=== PATIENT | male | born 2000 ===

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

== ENCOUNTER 2021-07-08 16:46 | Emergency (ER) | payer OTHER, MEDICAID, SELFPAY ==
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
[2021-07-08 16:56] VITALS: BP 122/53; BP 140/80; PULSE 75; PULSE 91; RESP 16; TEMP 37.1; O2SAT 97; O2SAT 99; BMI 22.1
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
[2021-07-08 17:34] LABS: MANUAL DIFF FLAG NO
[2021-07-08 17:35] LABS: Basophils Percent Auto 0.6 % (0-2); Eosinophils Absolute Auto 0.4 X10*3/uL (0.0-0.4); Eosinophils Percent Auto 7.2 % (0-4); Hematocrit 40.1 % (42-52); Hemoglobin 13.7 g/dl (14.0-18.0); Imm Gran Abs Auto 0.01 X10*3/uL (0.00-0.03); Imm Gran Pct Auto 0.2 % (0.0-0.4); Lymphocytes Absolute Auto 1.5 X10*3/uL (1.2-4.9); Lymphocytes Percent Auto 28.8 % (20-40); Mean Corpuscular HGB Conc 34.2 g/dl (31.0-36.0); Mean Corpuscular Hemoglobin 29.5 pg (27.0-33.0); Mean Corpuscular Volume 86.2 fL (80-98); Mean Platelet Volume 10.3 fL (9.4-12.4); Monocytes Absolute Auto 0.3 X10*3/uL (0.1-1.2); Monocytes Percent Auto 6.4 % (2-11); Neutrophils Absolute Auto 2.9 X10*3/uL (2.0-8.3); Neutrophils Percent Auto 56.8 % (45-73); Platelet Count 178 X10*3/uL (160-400); Red Blood Count 4.65 X10*6/uL (4.60-5.80); Red Cell Distribution Width 12.1 % (11.0-16.0); White Blood Count 5.2 X10*3/uL (4.8-10.8)
[2021-07-08] MEDS: iohexoL 350 MG/ML 100 ML INFUS..BTL IV (17:50)
[2021-07-08 18:08] LABS: Alanine Aminotransferase 22 U/L (0-40); Albumin Level 4.4 g/dL (3.5-5.0); Alkaline Phosphatase 85 U/L (39-117); Anion Gap 13 (12-20); Aspartate Amino Transferase 22 U/L (5-37); Bilirubin Direct 0.2 mg/dL (0.0-0.5); Bilirubin Total 0.7 mg/dL (0.0-1.0); Blood Urea Nitrogen 15 mg/dL (9-16); Calcium 9.2 mg/dL (8.4-10.2); Carbon Dioxide 24 mmol/L (22-29); Chloride 110 mmol/L (96-108); Creatinine Clr Calc Pharmacy 116.6; Estimated Glomerular Filt Rate > 60; Glucose Random 109 mg/dL (60-115); Lipase 18 U/L (8-78); Magnesium 2.3 mg/dL (1.6-2.6); Potassium 4.3 mmol/L (3.3-5.1); Sodium 143 mmol/L (135-145); Total Protein 6.6 g/dL (6.5-8.0)
[2021-07-08 18:09] VITALS: BP 105/63; PULSE 61; RESP 12; TEMP 37; O2SAT 98
[2021-07-08] MEDS: 0.9 % Sodium Chloride 1,000 ML 999 ML IVCONT (18:13)
[2021-07-08] MEDS: Lidocaine HCl 1 % MPF 5 ML VIAL SUBCUT (18:13)
--- NOTE | 2021-07-08 19:02 | PC.NURSE ---
Assumed care of client at this time. Client pending results from imaging. Pending these client will recieve stitches to lower lip by physician. Client in nad maldonado x 3.
--- NOTE | 2021-07-08 19:30 | PC.NURSE ---
Monique NOEL at bedside inserting stitches into lower lip. Plan for repeat CBC then d.c if normal
--- NOTE | 2021-07-08 19:51 | PC.NURSE ---
stitches inserted. Repeat CBC in progress
[2021-07-08 19:57] LABS: MANUAL DIFF FLAG NO
[2021-07-08 19:58] LABS: Basophils Percent Auto 0.4 % (0-2); Eosinophils Absolute Auto 0.3 X10*3/uL (0.0-0.4); Eosinophils Percent Auto 4.9 % (0-4); Hematocrit 41.8 % (42-52); Hemoglobin 14.1 g/dl (14.0-18.0); Imm Gran Abs Auto 0.01 X10*3/uL (0.00-0.03); Imm Gran Pct Auto 0.1 % (0.0-0.4); Lymphocytes Absolute Auto 1.8 X10*3/uL (1.2-4.9); Lymphocytes Percent Auto 25.7 % (20-40); Mean Corpuscular HGB Conc 33.7 g/dl (31.0-36.0); Mean Corpuscular Hemoglobin 29.7 pg (27.0-33.0); Mean Platelet Volume 10.6 fL (9.4-12.4); Monocytes Absolute Auto 0.3 X10*3/uL (0.1-1.2); Monocytes Percent Auto 4.8 % (2-11); Neutrophils Absolute Auto 4.4 X10*3/uL (2.0-8.3); Neutrophils Percent Auto 64.1 % (45-73); Platelet Count 174 X10*3/uL (160-400); Red Blood Count 4.75 X10*6/uL (4.60-5.80); Red Cell Distribution Width 12.2 % (11.0-16.0); White Blood Count 6.9 X10*3/uL (4.8-10.8)
== END 2021-07-08 20:19 | disposition home or self-care (01) ==
PROVIDERS: Physician Assistant; Emergency Provider Emergency Medicine; PCP Pediatrics
DX: M25.521 Pain in right elbow (principal); S01.511A Laceration without foreign body of lip, initial encounter; V47.0XXA Car driver injured in collision with fixed or stationary object in nontraffic accident, initial encounter; R51.9 Headache, unspecified; Y93.89 Activity, other specified; Y92.414 Local residential or business street as the place of occurrence of the external cause; Y99.9 Unspecified external cause status
CPT/HCPCS: 12051; 36415; 70450; 71260; 72125; 73080; 74177; 80048; 80076; 83690; 83735; 85025; 96360; 99284; Q9967

== ENCOUNTER 2021-09-07 11:10 | Emergency (ER) | payer MEDICAID, SELFPAY ==
[2021-09-07 11:27] VITALS: BP 122/74; PULSE 73; RESP 18; TEMP 36.7; O2SAT 100; BMI 21.4
== END 2021-09-07 13:03 | disposition left against medical advice (07) ==
PROVIDERS: Emergency Provider Emergency Medicine; PCP Pediatrics
DX: F11.93 Opioid use, unspecified with withdrawal (principal)
CPT/HCPCS: 99281; 99282

== ENCOUNTER 2021-09-12 21:18 | Emergency (ER) | payer MEDICAID, SELFPAY ==
--- NOTE | ~2021-09-12 | XR_ITS ---
EXAMINATION: XR CHEST CLINICAL INFORMATION: Lung pain after smoking cigarettes COMPARISON: 07/08/2021 TECHNIQUE: 2 views of the chest were obtained. FINDINGS: The lungs are clear with no focal consolidation. No evidence of pneumothorax, pulmonary edema, or pleural effusions. The cardiomediastinal silhouette is unremarkable. No acute osseous findings. XR/XR chest 2V IMPRESSION: No acute cardiopulmonary findings.
[2021-09-12 21:57] VITALS: BP 116/51; PULSE 73; RESP 18; TEMP 36.6; O2SAT 96; BMI 21.4
[2021-09-12 22:44] VITALS: BP 100/52; PULSE 66; RESP 16; O2SAT 97
--- NOTE | 2021-09-12 23:14 | ED_ITS ---
HPI - General Adult General Chief complaint: General Medical Stated complaint: back pain Time Seen by Provider: 09/12/21 22:58 Source: patient Mode of arrival: ambulatory History of Present Illness HPI narrative: 21-year-old male with past medical history of asthma presenting to the ED complaining of lung pain after smoking a cigarette today. Denies pain at present. Denies SOB, CP, cough, fever, chills, LE edema, calf pain, history blood clots, exogenous hormone use. Is a daily cigarette smoker Onset (ago): hour(s) Related Data Previous Rx's Medication Instructions Recorded salicylic acid 17 % topical gel 1 applic TOPICAL BID #7 g 09/21/20 (Compound W) cephalexin 500 mg capsule 500 mg PO QID 7 Days #28 cap 07/08/21 Allergies Allergy/AdvReac Type Severity Reaction Status Date / Time No Known Allergies Allergy Unverified 07/30/20 16:56 [No Known Allergies*] Review of Systems Review of Systems: Constitutional: No Fever, No Chills, No Fatigue, No Malaise ENT/Mouth: No Ear Pain, No Nasal Congestion, No sore throat, No Rhinorrhea, No Swallowing Difficulty Eyes: No Eye Pain, No Swelling Cardiovascular: No Chest Pain, No SOB, No Edema, No Palpitations Respiratory: No Cough, No Sputum, No Wheezing, No Smoke Exposure, No Dyspnea Gastrointestinal: No Nausea, No Vomiting, No Abdominal pain Genitourinary: No Dysuria, No Urinary Frequency, No Hematuria,No Flank Pain Musculoskeletal: +posterior back pain, No Myalgias, No Joint Swelling Skin: No Skin Lesions, No rash Neuro: No Weakness, No Numbness, No Headache Yes all other systems are reviewed and are negative [facility] Past Medical History Medical History (Updated 09/12/21 @ 23:52 by BERT Sutton) Asthma No known health problems Social History Social History Alcohol intake: never Patient Tobacco Use Status: Never used Tobacco Advance Directives: No Advance Directives Information Provided: No Physical Exam Vital Signs: Vital Signs: Last Vital Signs Temp 97.9 F 09/12/21 21:57 Pulse 66 09/12/21 22:44 Resp 16 09/12/21 22:44 BP 100/52 L 09/12/21 22:44 Pulse Ox 97 09/12/21 22:44 Body Mass Index 21.4 Const: General: cooperative, healthy appearing and no acute distress Orientation/consciousness: patient oriented x3 Limitations: no limitations HENMT: Head: Yes normal to inspection Ears: hearing grossly normal bilaterally General nose exam: Normal external nose present Face and sinus: Yes normal facial exam Eyes: General: appearance normal, both eyes and all related structures EOM: EOMs intact bilaterally Neck: Neck: Yes normal visual inspection and Yes no meningeal signs Resp: Effort & Inspection: normal respiratory effort, no cough and no respirat ory distress Auscultation: clear to auscultation bilaterally, no crackles, no rales, no rhonchi and no wheezes Cardio: Rate: regular rate Heart sounds: S1 normal heart sound present and S2 normal heart sound present Skin: Rashes: no rashes Wounds: no wounds Neuro: General: patient oriented x3 and no meningeal signs Gait exam (Neuro): Normal gait present Extrem: General: Yes normal to inspection, Yes no pedal edema and Yes no calf tenderness Course Course Course Narrative: XR chest 2V IMPRESSION: No acute cardiopulmonary findings. Medical Decision Making [facility] Narrative Medical decision making narrative: 21-year-old male with past medical history of asthma presenting to the ED complaining of lung pain after smoking a cigarette today. On exam vital signs stable, NAD, nontoxic appearing, asymptomatic at present, lungs CTA, no pedal edema/calf tenderness. Perc rule negative. Will obtain CXR to rule out pneumonia/underlying pathology. Low concern for ACS/PE Discharge Plan Discharge Clinical Impression: Back pain Qualifiers: Back pain location: back pain in unspecified location Chronicity: acute Back pain laterality: unspecified Qualified Code(s): M54.9 - Dorsalgia, unspecified Patient Disposition: Home, Self-Care Instructions: Back Pain (ED) Additional Instructions: Your chest x-ray was unremarkable You should really quit/cut back on smoking this causes multiple medical problems including increasing her risk of heart attacks, stroke, and If her symptoms recur, persist, developed chest pain, shortness of breath, fever, urinary incontinence/retention, numbness, tingling or weakness please return to ED Prescriptions: No Action cephalexin 500 mg capsule 500 mg PO QID 7 Days Qty: 28 RF: 0 Compound W 17 % gel 1 applic topical BID Qty: 7 RF: 0 Referrals: Ankit Lucas MD [Primary Care Provider] - 2 days
== END 2021-09-13 00:24 | disposition home or self-care (01) ==
PROVIDERS: Emergency Provider Student in an Organized Health Care Education/Training Program; PCP Pediatrics
DX: M54.9 Dorsalgia, unspecified (principal); F17.200 Nicotine dependence, unspecified, uncomplicated; J45.909 Unspecified asthma, uncomplicated
CPT/HCPCS: 71046; 99283

== ENCOUNTER 2024-12-25 22:39 | Inpatient (IN) | payer OTHER, SELFPAY ==
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
--- NOTE | ~2024-12-25 | XR_ITS ---
CLINICAL HISTORY: puched wall, hand swollen and painful 3 views right hand. Single scaphoid view of the wrist Comparison: None Findings: Equivocal small avulsion fracture base 5th metacarpal bone.Overlying soft tissue swelling No periostitis or bony destruction. Joint intervals are preserved. No marginal erosions or overhanging osteophytes. Ulnar styloid perserved. Soft tissue swelling along the 5th metacarpal bone. Carpal bones unremarkable.. No radiopaque foreign body. Impression: 1. Equivocal small avulsion fracture base 5th metacarpal bone overlying soft tissue swelling. This document has been electronically signed by: Nilo Mendoza MD on 12/29/2024 12:35:37
[2024-12-25 22:50] VITALS: BP 142/92; BP 98/76; PULSE 68; PULSE 79; RESP 16; TEMP 37; O2SAT 97; O2SAT 98; BMI 22.5
[2024-12-25 23:06] VITALS: RESP 14
--- NOTE | 2024-12-25 23:07 | PC.NURSE ---
Pt reports feeling depressed and sad due to multiple family members passing recently. He also reports that he feels like he is two people, himself and his brother. Patient is calm and cooperative, alert and oriented x4, denies SI/HI. Patient is aware of plan of care for CARE team eval after med clearance
[2024-12-25 23:32] LABS: MANUAL DIFF FLAG NO
[2024-12-25 23:33] LABS: Basophils Percent Auto 0.4 % (0-2); Eosinophils Percent Auto 0.3 % (0-4); Hematocrit 44.7 % (42.0-52.0); Imm Gran Abs Auto 0.02 X10*3/uL (0.00-0.03); Imm Gran Pct Auto 0.3 % (0.0-0.4); Lymphocytes Absolute Auto 1.6 X10*3/uL (1.2-4.9); Lymphocytes Percent Auto 23.6 % (20-40); Mean Corpuscular HGB Conc 35.8 g/dl (31.0-36.0); Mean Corpuscular Hemoglobin 30.8 pg (27.0-33.0); Mean Corpuscular Volume 86.1 fL (80.0-98.0); Mean Platelet Volume 10.5 fL (9.4-12.4); Monocytes Absolute Auto 0.4 X10*3/uL (0.1-1.2); Monocytes Percent Auto 5.8 % (2-11); Neutrophils Absolute Auto 4.8 x10*3/uL (2.0-8.3); Neutrophils Percent Auto 69.6 % (45-73); Platelet Count 207 X10*3/uL (160-400); Red Blood Count 5.19 X10*6/uL (4.60-5.80); Red Cell Distribution Width 12.1 % (11.0-16.0)
[2024-12-25 23:36] LABS: Appearance Urine Clear; Color Urine Yellow; Glucose Urine UA Negative (Negative); Leukocyte Esterase Urine Trace (Negative); Nitrite Urine Negative (Negative); PH 6.5 (5.0-9.0); Specific Gravity - Urine 1.025 (1.005-1.025); UMIC TRIGGER UACC YES; Urine Blood Trace (Negative); Urine Ketones 15 mg/dL (Negative); Urine Protein Negative (Neg-Trace)
[2024-12-25 23:49] LABS: Amphetamine Screen Urine Not Detected (Not Detect); Barbiturates, Urine Not Detected (Not Detect); Benzodiazepines Screen Urine Not Detected (Not Detect); Buprenorphine Scr Not Detected (Not Detect); Cannabinoid Screen Urine POSITIVE (Not Detect); Cocaine Screen Urine Not Detected (Not Detect); Fentanyl, urine Not Detected (Not Detect); Methadone Screen, Urine Not Detected (Not Detect); Opiate Screen Urine Not Detected (Not Detect); Oxycodone Screen Urine Not Detected (Not Detect); Phencyclidine Screen Urine Not Detected (Not Detect)
[2024-12-25 23:57] LABS: Alanine Aminotransferase 20 U/L (0-40); Albumin Level 4.7 g/dL (3.5-5.0); Alkaline Phosphatase 61 U/L (39-117); Anion Gap 14 (12-20); Aspartate Amino Transferase 26 U/L (5-37); Bilirubin Total 0.7 mg/dL (0.0-1.0); Blood Urea Nitrogen 20 mg/dL (9-16); Calcium 9.2 mg/dL (8.4-10.2); Carbon Dioxide 24 mmol/L (22-29); Chloride 108 mmol/L (96-108); Ethanol < 10 mg/dL; Glucose Random 92 mg/dL (60-115); Potassium 3.8 mmol/L (3.3-5.1); Sodium 142 mmol/L (135-145); Total Protein 7.7 g/dL (6.5-8.0)
[2024-12-26 00:11] LABS: Bacteria Urine None Seen (None Seen); Hyaline Casts Urine 0-2 /LPF (0-2); Squamous Epithelial Cell Urine 0-2 /HPF (0-2); UACC Culture Trigger YES
[2024-12-26 00:23] LABS: Creatinine Clr Calc Pharmacy 104.8; Estimated Glomerular Filt Rate > 60
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
--- NOTE | 2024-12-26 03:34 | PC.NURSE ---
Pt calm and cooperative without distress noted. Pt inquiring about plan of care and how long he would be in the department for. RN explained typical procedures and plan of care for medical clearance and Care Team evaluation, which he verbalized understanding. he offers no complaints or needs at this time, denies food/beverage/warm blankets. Per MD request, RN called the patient's mother Shelbie with help from director of medical staff services. Mom confirms that the patient is living with her temporarily s/p a recent break up. Mom states that she has a lot of concerns regarding the patient, specifically the comments he makes, shows he watches and is interested in and a previous SI attempt back when he was 19 (no further details provided regarding this event). MD aware and plan is for patient to see care team in the AM for appropriate dispo
[2024-12-26 06:17] VITALS: BP 113/56; PULSE 62; RESP 17; TEMP 36.6; O2SAT 100
--- NOTE | 2024-12-26 08:11 | PC.NURSE ---
Patient reports takes no home medications
--- NOTE | 2024-12-26 10:26 | PC.NURSE ---
Patient talking on phone with girlfriend and little brother patient agitated, making threats about what I will do when he gets out of here. Care team aware and into patients room to assess him. Patient aware that he will not be going home at this time. Continues with pressured speech, pacing in common area making statements I was dreaming for a year, today I finally woke up . Able to be re-directed for short periods of time
--- NOTE | 2024-12-26 10:42 | PC.NURSE ---
Anxious and pacing in common area, patient agreeable to take po meds to help him calm down. Provider came to speak with patient
[2024-12-26] MEDS: diphenhydrAMINE HCL 25 MG CAPSULE 50 MG PO (10:46)
[2024-12-26] MEDS: HaloperidoL 5 MG TABLET 10 MG PO (10:46)
[2024-12-26] MEDS: LORazepam 1 MG TABLET 2 MG PO (10:46)
--- NOTE | 2024-12-26 14:43 | PHA.MEDREC ---
Addendum entered by Carolina Fernández RPh 12/26/24 15:50: med rec reviewed by neymar Original Note: Pharmacy Consult ? Medication Reconciliation Pharmacy reviewed med rec done by nursing. No Known Home Meds confirmed; claims match.
[2024-12-26 15:45] VITALS: BP 126/72; PULSE 67; TEMP 36.4; O2SAT 97; BMI 21.0
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
[2024-12-27 08:00] VITALS: BP 131/70; PULSE 90; RESP 16; TEMP 36.1; O2SAT 99
[2024-12-27] MEDS: hydrOXYzine HCL 25 MG TABLET PO ×3 (09:43→19:54)
[2024-12-27 10:04] LABS: Estimated Average Glucose 97 mg/dL; Hemoglobin A1C 128.6712 umol/L; Total Hemoglobin (HGBA1C) 4190.1262 umol/L
[2024-12-27 10:21] LABS: Cholesterol 161 mg/dL (<200); HDL Cholesterol 49 mg/dL (>40); LDL Cholesterol Calculated 99 mg/dL (<100); Magnesium 2.3 mg/dL (1.6-2.6); Triglycerides 68 mg/dL (<150)
--- NOTE | 2024-12-27 10:35 | P.HPPS_ITS ---
HPI Date of Service: 12/27/24 Chief Complaint: bipolar disorder Sources of Information: patient interviewed, chart reviewed and crisis/core team assessment reviewed HPI Subjective Notes: [place] Warning and Section 12B Healthcare Proxy: No Guardianship: No Medical Problems Affecting Mental Status: No Narrative: Seen and dismissed by pt twice. Demanding discharge. 24 yo male, to ER with EMS-mother called, pt has stopped using substances and she reported his mood has become more labile with psychosis, referencing a friend who , feeling this friend is in inside of him, hanging on him and attached to him. Family tells crisis he is presenting with neil and disorganization. Pt seen 12/26x1 and 12/27 x 2. He is angry, labile, with confusion disorientation, demanding discharge. Section XIIB explained and treatment goals outlined along with review of family's presenting concerns for pt which he does not accept. Discussed working with Section XIIB evaluation time to see if we may come up with a plan of care he will agree with. Past Psychiatric History: IP: Age 20-[place] post overdose OP: None, of [facility] Medical Evaluation Reviewed: Yes [facility] Medical History (Updated 12/27/24 @ 14:33 by Myrna Paz, MONIK) Cannabis use disorder Asthma No known health problems Social History: Lives with his mother Three children Left school in tenth grade Trained in [employer] Substance History: opiates, heroin, fentanyl,percocet,cannabis Reports his sober date to crisis as 12/23/23. Trauma History: Affirms Diagnostics Vital Signs (24Hr): Vital Signs - 24 hr 12/26/24 15:45 12/27/24 08:00 Temperature 97.5 F 96.9 F Pulse Rate 67 90 Respiratory Rate 16 Blood Pressure 126/72 131/70 Pulse Oximetry 97 99 Oxygen Delivery Method Room Air BMI result Body Mass Index 21.0 Labs 12/25/24 23:25 12/25/24 23:25 Labs: Laboratory Results - last 48 hr 12/25/24 12/25/24 12/27/24 23:25 23:26 09:15 WBC 7.0 RBC 5.19 Hgb 16.0 Hct 44.7 MCV 86.1 MCH 30.8 MCHC 35.8 RDW 12.1 Plt Count 207 MPV 10.5 Immature Gran % (Auto) 0.3 Neut % (Auto) 69.6 Lymph % (Auto) 23.6 [place] % (Auto) 5.8 Eos % (Auto) 0.3 Baso % (Auto) 0.4 Lymph # (Auto) 1.6 [place] # (Auto) 0.4 Eos # (Auto) 0.0 Baso # (Auto) 0.0 Abs Immat Gran (auto) 0.02 Absolute Neuts (auto) 4.8 Absolute Nucleated RBC 0.000 Nucleated RBC % (auto) 0.0 Sodium 142 Potassium 3.8 Chloride 108 Carbon Dioxide 24 Anion Gap 14 BUN 20 H Creatinine 1.04 Estim Creat Clear Calc 104.8 Estimated GFR > 60 Random Glucose 92 Estimat Average Glucose 97 Hemoglobin A1c % 5.0 Calcium 9.2 Magnesium 2.3 Total Bilirubin 0.7 AST 26 ALT 20 Alkaline Phosphatase 61 Total Protein 7.7 Albumin 4.7 Triglycerides 68 Cholesterol 161 LDL Cholesterol, Calc 99 HDL Cholesterol 49 Urine Color Yellow Urine Appearance Clear Urine pH 6.5 Ur Specific [place] 1.025 Urine Protein Negative Urine Glucose (UA) Negative Urine Ketones 15 Urine Blood Trace H Urine Nitrite Negative Ur Leukocyte Esterase Trace H Urine RBC 11-20 H Urine WBC 6-10 H Ur Squamous Epith Cells 0-2 Urine Bacteria None Seen Hyaline Casts 0-2 Urine Opiates Screen Not Detected Ur Buprenorphine Scrn Not Detected Ur Oxycodone Screen Not Detected Urine Methadone Screen Not Detected Urine Fentanyl Screen Not Detected Ur Barbiturates Screen Not Detected Ur Phencyclidine Scrn Not Detected Ur Amphetamines Screen Not Detected U Benzodiazepines Scrn Not Detected Urine Cocaine Screen Not Detected U Marijuana (THC) Screen POSITIVE H Ethyl Alcohol < 10 Meds/Allergies Meds Home Medications ?Medication ?Instructions ?Recorded ?Confirmed ?Type No Known Home Meds 12/26/24 12/26/24 History Allergies Allergies Allergy/AdvReac Type Severity Reaction Status Date / Time No Known Allergies Allergy Verified 12/25/24 23:05 [No Known Allergies*] Mental Status Exam Mental Status Exam Patient Appearance: Appropriate Patient Orientation: Person, Place and Situation Level of Consciousness: Alert Patient Behavior: Talkative, Suspicious, Verbal Threats, Anxious, Fearful, Resistive to Care, Distractible and Impulsive Mood Description: Labile and Angry Affect Description: Labile and Angry Patient Cognition Impaired: No Ability to Follow Directions: Fair Speech Pattern: Spontaneous Speech Memory Description: Episodic Impaired Hallucinations: Auditory (?) Delusions: Paranoid Ideation and Present Thought Process: Illogical and Distracted Thought Content: positive for Circumstantial Depressive Symptoms: Increased Irritability and Difficulty Concentrating Abnormal Motor Activity Signs and Symptoms: Restlessness Judgement: Poor Assessment & Plan Assessment & Plan (1) Bipolar disorder: Status: Acute Code(s): F31.9 - Bipolar disorder, unspecified (2) Cannabis use disorder: Status: Acute Code(s): F12.90 - Cannabis use, unspecified, uncomplicated Plan Bipolar Disorder, Cannabis Use Disorder. Plan: Admit, Section XII, 15 minute checks Diagnostics as needed Collateral contact Olanzapine 20 mg HS Haldol 5 mg tid prn psychosis, agitation Education as pt will allow on mood sx and treatment Encourage milieu as pt improves. Patient educated on: therapeutic strategies Reason for continued inpatient stay Substantial Risk for: rapid decompensation Statement Statement: I have reviewed the history and physical and performed a pertinent examination on my patient. No changes have occurred unless specified. If the History and Physical was not performed prior to admission, the Hospitalist's service will be consulted for completing the admission physical. Time Spent With Patient Time: Total time managing care of this patient today ____ minutes.
[2024-12-27 10:37] LABS: Free T4 (Free Thyroxine) 1.03 ng/dL (0.71-1.85); Thyroid Stimulating Hormone 3.91 uIU/mL (0.32-4.0)
[2024-12-27 10:52] LABS: Folate 10.5 ng/mL (> or = 4.0); Vitamin B12 479 pg/mL (200-900)
[2024-12-27] MEDS: Flu Vacc TS2024-25(6mos up)/PF 0.5 ML SYRINGE IM (12:40)
[2024-12-27] MEDS: HaloperidoL 5 MG TABLET PO ×3 (12:43→19:54)
[2024-12-27] MEDS: OLANZapine 10 MG TABLET 20 MG PO (19:54)
[2024-12-27] MEDS: cephALEXin 500 MG CAPSULE PO (19:54)
[2024-12-27 20:00] VITALS: BP 129/67; PULSE 70; RESP 16; TEMP 36.5; O2SAT 97
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
[2024-12-28 07:51] VITALS: BP 130/60; PULSE 73; RESP 16; TEMP 36.8; O2SAT 100
[2024-12-28] MEDS: hydrOXYzine HCL 25 MG TABLET PO ×2 (07:56→14:51)
[2024-12-28] MEDS: cephALEXin 500 MG CAPSULE PO ×2 (08:57→21:37)
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
[2024-12-28] MEDS: HaloperidoL 5 MG TABLET PO (12:35)
[2024-12-28] MEDS: Benztropine Mesylate 1 MG TABLET PO (16:50)
[2024-12-28] MEDS: chlorproMAZINE HCl 100 MG TABLET PO (16:50)
[2024-12-28] MEDS: LORazepam 1 MG TABLET PO (17:17)
--- NOTE | 2024-12-28 17:17 | HO.BHRESTREX ---
Behavioral Restraint Exam Behavioral Health Restraint Exam Type of Restraint: Physical Hold Reason for Restraint: Substantial Risk and Substantial Risk of Harm to Others Medical Concerns for Restraint: No medical concerns, pt w/o acute inj / no noted resp/VS abnormalities Behavioral Assessment / Plan: No further behavioral concerns, continue current plan.
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
[2024-12-28] MEDS: OLANZapine 10 MG TABLET 20 MG PO (17:55)
[2024-12-28 20:00] VITALS: RESP 16
[2024-12-29] MEDS: Acetaminophen 325 MG TABLET 650 MG PO ×3 (01:44→21:04)
[2024-12-29] MEDS: traZODone HCL 50 MG TABLET PO ×2 (01:45→20:58)
[2024-12-29] MEDS: HaloperidoL 5 MG TABLET PO (05:22)
[2024-12-29 08:00] VITALS: BP 119/61; PULSE 68; RESP 14; TEMP 37.1; O2SAT 100
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
[2024-12-29] MEDS: chlorproMAZINE HCl 25 MG TABLET 50 MG PO ×3 (10:22→20:58)
[2024-12-29] MEDS: cephALEXin 500 MG CAPSULE PO ×2 (10:22→20:57)
[2024-12-29] MEDS: Benztropine Mesylate 1 MG TABLET PO ×2 (10:22→13:58)
[2024-12-29] MEDS: hydrOXYzine HCL 25 MG TABLET PO (13:58)
[2024-12-29] MEDS: chlorproMAZINE HCl 100 MG TABLET PO (13:59)
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
[2024-12-29] MEDS: Ibuprofen 600 MG TABLET PO (15:51)
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
[2024-12-29 19:00] VITALS: BP 129/76; PULSE 92; RESP 16; TEMP 36.7
[2024-12-29] MEDS: OLANZapine 10 MG TABLET 20 MG PO (20:57)
[2024-12-30] MEDS: hydrOXYzine HCL 25 MG TABLET PO ×3 (01:16→19:53)
[2024-12-30] MEDS: chlorproMAZINE HCl 25 MG TABLET 50 MG PO ×4 (01:17→23:49)
[2024-12-30] MEDS: traZODone HCL 50 MG TABLET PO ×2 (01:17→19:53)
[2024-12-30 08:00] VITALS: BP 129/60; PULSE 85; RESP 16; TEMP 36.9; O2SAT 98
[2024-12-30] MEDS: cephALEXin 500 MG CAPSULE PO ×2 (08:45→19:53)
--- NOTE | 2024-12-30 09:01 | P.PNPSI_ITS ---
Subjective Subjective Date of Service: 12/30/24 Reason For Visit: bipolar disorder Subjective Notes: Section 12B Healthcare Proxy: No Guardianship: No Interim History: Patient was seen and discussed in rounds today. Records and plans were reviewed. He has been doing better and has had no further incidents. He did have several fractures in his left hand which is now braced until seen by orthopedics this week and some small fractures in his right hand which did not require bracing per verbal consult with Orthopedics PA/on-call. I discussed with him the need for one-to-one and he is comfortable for dropping it and we will do 15 minute checks unless the need arises. I also talked about parameters of restaging that. Eating and sleeping adequately. Interacts well with others. Review of Systems Review of Systems Left hand pain secondary to fractures Yes all other systems are reviewed and are negative Mental Status Exam Mental Status Exam Narrative: In today's visit he is alert, calm and interactive. Answered questions. Speech is soft-spoken. Good eye contact. He is more verbal and interactive. Denies AVH. No SI/HI. Cognitively is intact. Judgment mostly intact unless triggered. Able to move all limbs. No gait abnormalities Diagnostics Vital Signs (24Hr): Vital Signs - 24 hr 12/29/24 19:00 12/30/24 08:00 Temperature 98.0 F 98.5 F Pulse Rate 92 85 Respiratory Rate 16 16 Blood Pressure 129/76 129/60 Pulse Oximetry 98 Oxygen Delivery Method Room Air BMI result Body Mass Index 21.0 Labs 12/25/24 23:25 12/25/24 23:25 Medications Medications Current Medications Acetaminophen (Acetaminophen 325 Mg Tablet) 650 mg PO Q6H PRN PRN Reason: pain 1-10 Last Admin: 12/29/24 21:04 Dose: 650 mg Al Hydroxide/Mg Hydroxide (Magnesium Hydrox/Alum Hydrox 30 Ml Oral.Susp) 30 ml PO Q6H PRN PRN Reason: Heartburn/Nausea Benztropine Mesylate (Benztropine Mesylate 1 Mg Tablet) 1 mg PO TID PRN PRN Reason: Extrapyramidal Effects Last Admin: 12/29/24 13:58 Dose: 1 mg Cephalexin HCl (Cephalexin 500 Mg Capsule) 500 mg PO Q12H JEANIE Stop: 01/03/25 20:59 Last Admin: 12/30/24 08:45 Dose: 500 mg Chlorpromazine HCl (Chlorpromazine Hcl 100 Mg Tablet) 100 mg PO DAILY@1500 JEANIE Last Admin: 12/29/24 13:59 Dose: 100 mg Chlorpromazine HCl (Chlorpromazine Hcl 25 Mg Tablet) 50 mg PO QID PRN PRN Reason: anxiety/agitation Last Admin: 12/30/24 08:45 Dose: 50 mg Hydroxyzine HCl (Hydroxyzine Hcl 25 Mg Tablet) 25 mg PO Q6H PRN PRN Reason: mild anxiety Last Admin: 12/30/24 01:16 Dose: 25 mg Ibuprofen (Ibuprofen 600 Mg Tablet) 600 mg PO QID PRN PRN Reason: Pain, Moderate(Pain Scale 4-6) Last Admin: 12/29/24 15:51 Dose: 600 mg Magnesium Hydroxide (Milk Of Magnesia 30 Ml Oral.Susp) 30 ml PO DAILY PRN PRN Reason: Constipation Nicotine Polacrilex (Nicotine Polacrilex 2 Mg Gum) 4 mg BUCCAL Q2H PRN PRN Reason: Nicotine Cravings Olanzapine (Olanzapine 10 Mg Tablet) 20 mg PO BEDTIME [facility] Last Admin: 12/29/24 20:57 Dose: 20 mg Trazodone HCl (Trazodone Hcl 50 Mg Tablet) 50 mg PO BEDTIME MRX1 PRN PRN Reason: Insomnia Last Admin: 12/30/24 01:17 Dose: 50 mg Allergies Allergies Allergy/AdvReac Type Severity Reaction Status Date / Time No Known Allergies Allergy Verified 12/25/24 23:05 [No Known Allergies*] Assessment & Plan Assessment & Plan (1) Metacarpal bone fracture: Status: Acute Code(s): S62.309A - Unspecified fracture of unspecified metacarpal bone, initial encounter for closed fracture Plan spoke with the attending provider , Dr Schaefer in psych in regards to the patient. left base of the 4th and 5th metacarpal fracture should be placed in a volar splint. They could not do splint so we setteled on velcro wrist splint Right has potential base of the 5th avulsion fx-placed in velcro thumb spica splint Patient should be seen later this week to assess if he needs to be placed in a cast vs continue velcro splint due to swelling At this time no lifting more than a cell phone with left hand Repeat xrays in 4 weeks. 12/30: Continue current regimen and plans. Left hand is braced until seen by orthopedics for possible cast. Discontinued one-to-one Reason for continued inpatient stay Substantial Risk for: med/psych decompensation Time Spent With Patient Time: Total time managing care of this patient today ____ minutes.
[2024-12-30] MEDS: Acetaminophen 325 MG TABLET 650 MG PO (11:13)
--- NOTE | 2024-12-30 14:08 | PM.PNORT ---
Subjective Subjective Date of Service: 12/30/24 Interval history: Left 4th and 5th base of the metacarpal fx-velcro splint intact -no overnight events States his right hand has no pain Physical Exam Vital Signs: Vital Signs: Last Vital Signs Temp 98.5 F 12/30/24 08:00 Pulse 85 12/30/24 08:00 Resp 16 12/30/24 08:00 BP 129/60 12/30/24 08:00 Pulse Ox 98 12/30/24 08:00 O2 Del Method Room Air 12/30/24 08:00 BMI result Body Mass Index 21.0 Const: General: cooperative, healthy appearing, comfortable and no acute distress Extrem: Other: Left hand swelling with tenderness to palpation at the base of the 4th and 5th mc base. He can extend all digits and make a fist. no scissoring or crossing over. NVI. Right hand normal to inspection , no tenderness to palpation. he can make a fist and extend all digits. Procedures Date of Service Date of Service: 12/30/24 Progress Note: A&P Assessment and plan (1) Metacarpal bone fracture: Status: Acute Assessment and Plan: left base of the 4th and 5th metacarpal fracture -splint intact. check swelling mid week to determine cast Right hand- no intervention warranted At this time no lifting more than a cell phone with left hand Repeat xrays in 4 weeks. Time Spent With Patient Time: Total time managing care of this patient today ____ minutes. Quality Stroke Does the patient have a stroke diagnosis?: No VTE Prior VTE?: No VTE Risk Level:: Surgical - low VTE Device Contraindication: N/A - Device Ordered VTE Drug Contraindication: N/A - Med Ordered
[2024-12-30] MEDS: chlorproMAZINE HCl 100 MG TABLET PO (15:45)
[2024-12-30 19:47] VITALS: BP 143/71; PULSE 87; RESP 16; TEMP 36.9; O2SAT 98
[2024-12-30] MEDS: OLANZapine 10 MG TABLET 20 MG PO (19:53)
[2024-12-30] MEDS: Ibuprofen 600 MG TABLET PO (19:57)
[2024-12-31] MEDS: hydrOXYzine HCL 25 MG TABLET PO (04:20)
[2024-12-31 08:00] VITALS: BP 108/53; PULSE 70; RESP 18; TEMP 36.9; O2SAT 98
[2024-12-31] MEDS: cephALEXin 500 MG CAPSULE PO ×2 (08:24→08:41)
[2024-12-31] MEDS: chlorproMAZINE HCl 25 MG TABLET 50 MG PO (08:41)
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
== END 2024-12-31 12:07 | disposition home or self-care (01) | DRG 885 ==
LOC: HO.ED 12-26 10:40 → HO.PM5 12-26 14:31 → HO.PADLT16 12-27 21:09
PROVIDERS: Internal Medicine; Admitting Provider Clinical Nurse Specialist Psychiatric/Mental Health, Adult; Emergency Provider Emergency Medicine Emergency Medical Services; PCP Nurse Practitioner Primary Care; Visit Provider Clinical Nurse Specialist Psychiatric/Mental Health, Adult
DX: F31.9 Bipolar disorder, unspecified (principal); N39.0 Urinary tract infection, site not specified; F17.210 Nicotine dependence, cigarettes, uncomplicated; Z71.6 Tobacco abuse counseling; Z23 Encounter for immunization; F12.90 Cannabis use, unspecified, uncomplicated; Z78.1 Physical restraint status; S62.315A Displaced fracture of base of fourth metacarpal bone, left hand, initial encounter for closed fracture; S62.317A Displaced fracture of base of fifth metacarpal bone, left hand, initial encounter for closed fracture; S62.316A Displaced fracture of base of fifth metacarpal bone, right hand, initial encounter for closed fracture; W22.09XA Striking against other stationary object, initial encounter; Z79.899 Other long term (current) drug therapy
CPT/HCPCS: 36415; 73110; 73130; 80053; 80061; 80307; 81001; 81003; 82607; 82746; 83036; 83735; 84439; 84443; 85025; 87086; 90656; 99285; S9485

== ENCOUNTER 2024-12-26 13:46 | Outpatient (BNV) | payer OTHER, SELFPAY | END 2024-12-29 09:29 | PROVIDERS: Admitting Provider Clinical Nurse Specialist Psychiatric/Mental Health, Adult; Emergency Provider Emergency Medicine Emergency Medical Services; PCP Nurse Practitioner Primary Care; Visit Provider Radiology Diagnostic Radiology | DX: S62.316A Displaced fracture of base of fifth metacarpal bone, right hand, initial encounter for closed fracture (principal); S62.317A Displaced fracture of base of fifth metacarpal bone, left hand, initial encounter for closed fracture | CPT/HCPCS: 73110; 73130 ==

== ENCOUNTER → 2024-12-26 13:46 | Outpatient (BNV) | payer OTHER, SELFPAY | PROVIDERS: Admitting Provider Clinical Nurse Specialist Psychiatric/Mental Health, Adult; Emergency Provider Emergency Medicine Emergency Medical Services; PCP Nurse Practitioner Primary Care; Visit Provider Psychiatry & Neurology Psychiatry | DX: F31.2 Bipolar disorder, current episode manic severe with psychotic features (principal); F12.90 Cannabis use, unspecified, uncomplicated; S62.309A Unspecified fracture of unspecified metacarpal bone, initial encounter for closed fracture | CPT/HCPCS: 90792; 99232; 99239; 99499 ==

== ENCOUNTER → 2024-12-26 13:46 | Outpatient (BNV) | payer OTHER, SELFPAY | PROVIDERS: Admitting Provider Clinical Nurse Specialist Psychiatric/Mental Health, Adult; Emergency Provider Emergency Medicine Emergency Medical Services; PCP Nurse Practitioner Primary Care; Visit Provider Physician Assistant | DX: S62.314A Displaced fracture of base of fourth metacarpal bone, right hand, initial encounter for closed fracture (principal); S62.316A Displaced fracture of base of fifth metacarpal bone, right hand, initial encounter for closed fracture | CPT/HCPCS: 99221 ==

== ENCOUNTER 2025-01-03 09:38 | Outpatient (AMB) | payer OTHER, SELFPAY ==
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
[2025-01-03 10:02] VITALS: BMI 21.4
== END 2025-01-03 11:19 | disposition home or self-care (01) ==
PROVIDERS: PCP Nurse Practitioner Primary Care; Visit Provider Orthopaedic Surgery
DX: S62.315A Displaced fracture of base of fourth metacarpal bone, left hand, initial encounter for closed fracture (principal); S62.317A Displaced fracture of base of fifth metacarpal bone, left hand, initial encounter for closed fracture; F31.9 Bipolar disorder, unspecified
CPT/HCPCS: 26600; 99204

== ENCOUNTER 2025-01-03 09:49 | Outpatient (REF) | payer OTHER, SELFPAY ==
--- NOTE | ~2025-01-03 | XR_ITS ---
EXAMINATION: XR HAND, LEFT CLINICAL INFORMATION: M79.642 - Pain in left hand COMPARISON: December 29, 2024. TECHNIQUE: PA, lateral, and oblique views of the left hand. FINDINGS: There is no healing/callus formation or periosteal bone reaction and a comminuted fracture centimeters base of the fourth and fifth metacarpals. The carpal bones are intact. The pathologist of the digits are intact. The distal radius and ulna are intact with questionable congenital deformity. Duplicated XR/XR hand LT min 3V IMPRESSION: No healing identified. Electronically signed by: Bk Johansen MD 01/03/2025 01:45 PM EST
== END 2025-01-03 09:50 | disposition home or self-care (01) ==
LOC: HO.HOSX 09:49
PROVIDERS: Visit Provider Orthopaedic Surgery
DX: S62.315A Displaced fracture of base of fourth metacarpal bone, left hand, initial encounter for closed fracture (principal); S62.317A Displaced fracture of base of fifth metacarpal bone, left hand, initial encounter for closed fracture; F31.9 Bipolar disorder, unspecified; W22.09XA Striking against other stationary object, initial encounter; Y93.89 Activity, other specified; Y92.239 Unspecified place in hospital as the place of occurrence of the external cause; Y99.8 Other external cause status
CPT/HCPCS: 26600; 73130; 99202

== ENCOUNTER → 2025-01-03 09:50 | Outpatient (BNV) | payer OTHER, SELFPAY | PROVIDERS: Visit Provider Radiology Diagnostic Radiology | DX: M79.642 Pain in left hand (principal) | CPT/HCPCS: 73130 ==

== ENCOUNTER 2025-01-22 08:50 | Outpatient (REF) | payer OTHER, SELFPAY | END 2025-01-22 08:51 | disposition home or self-care (01) | LOC: HO.HOSX 08:50 | PROVIDERS: Visit Provider Orthopaedic Surgery | DX: Z13.89 Encounter for screening for other disorder (principal) ==

== ENCOUNTER 2025-01-29 10:52 | Outpatient (AMB) | payer OTHER, SELFPAY ==
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
[2025-01-29 11:41] VITALS: BMI 21.4
== END 2025-01-29 11:57 | disposition home or self-care (01) ==
LOC: HO.HOS 10:53
PROVIDERS: Visit Provider Orthopaedic Surgery
DX: S62.315A Displaced fracture of base of fourth metacarpal bone, left hand, initial encounter for closed fracture (principal); S62.317A Displaced fracture of base of fifth metacarpal bone, left hand, initial encounter for closed fracture; F31.9 Bipolar disorder, unspecified
CPT/HCPCS: 99024

== ENCOUNTER → 2025-01-29 10:58 | Outpatient (BNV) | payer OTHER, SELFPAY | PROVIDERS: Visit Provider Radiology Diagnostic Radiology | DX: S62.315A Displaced fracture of base of fourth metacarpal bone, left hand, initial encounter for closed fracture (principal); S62.317A Displaced fracture of base of fifth metacarpal bone, left hand, initial encounter for closed fracture | CPT/HCPCS: 73130 ==

== ENCOUNTER 2025-01-29 11:48 | Outpatient (REF) | payer OTHER, SELFPAY ==
--- NOTE | ~2025-01-29 | XR_ITS ---
EXAMINATION: XR HAND 3 OR MORE VIEWS LEFT HISTORY: M79.642 - Pain in left hand COMPARISON: Comparison is made with the prior examination dated 01/03/2025. FINDINGS: Three views of the left hand are submitted. Osseous mineralization is normal. Again seen are fractures of the bases of the 4th and 5th metacarpals. The fracture lines remain visible but are slightly blurred. A small amount of callus formation is noted. Findings are consistent with interval healing. The joint spaces are preserved. The soft tissues are unremarkable. XR/XR hand LT min 3V IMPRESSION: Healing fractures of the bases of the 4th and 5th metacarpals. Electronically signed by: Paul Reed MD 01/30/2025 07:26 AM EDT
== END 2025-01-29 11:49 | disposition home or self-care (01) ==
LOC: HO.HOSX 11:48
PROVIDERS: Visit Provider Orthopaedic Surgery
DX: S62.315D Displaced fracture of base of fourth metacarpal bone, left hand, subsequent encounter for fracture with routine healing (principal); S62.317D Displaced fracture of base of fifth metacarpal bone, left hand, subsequent encounter for fracture with routine healing; M79.642 Pain in left hand; F31.9 Bipolar disorder, unspecified
CPT/HCPCS: 73130; 99212

== ENCOUNTER 2025-02-20 15:10 | Inpatient (IN) | payer MEDICAID, OTHER, SELFPAY ==
--- NOTE | 2025-02-20 15:13 | ED_ITS ---
HPI - Psych General Chief Complaint: Psychiatric Symptoms Stated Complaint: si Time Seen by Provider: 02/20/25 15:42 Source: patient Mode of arrival: ambulatory Limitations: no limitations History of Present Illness ED Provider: Meghna Roper PA-C HPI Narrative: Patient is a 24 year old assigned male at with a history of bipolar disorder presenting to the emergency department today with suicidal ideation and feeling as though someone put a rastafarian spell on him. Patient states that he feels as though he is hearing voices telling him to hurt himself. Patient denies any dizziness, lightheadedness, abdominal pain, nausea, vomiting, fever, chills, blurry vision, double vision, loss of vision, chest pain, difficulty breathing, shortness of breath, back pain, night sweats, pain with urination, increased urinary frequency, increased urinary urgency, blood in his urine or stool, syncope or a near syncopal episode, recent trauma or falls, bowel incontinence, bladder incontinence, or any other complaints at this time. Related Data Home Medications ?Medication ?Instructions ?Recorded ?Confirmed buspirone 5 mg tablet 5 mg PO TID PRN anxiety 02/21/25 02/21/25 hydroxyzine HCl 10 mg tablet 10 mg PO TID PRN anxiety 02/21/25 02/21/25 Previous Rx's ?Medication ?Instructions ?Recorded chlorpromazine 100 mg tablet 100 mg PO DAILY@1500 30 days #30 12/31/24 tabs olanzapine 10 mg tablet 20 mg (2 x 10 mg) PO BEDTIME 30 12/31/24 days #60 tabs Allergies Allergy/AdvReac Type Severity Reaction Status Date / Time No Known Allergies Allergy Verified 02/20/25 15:22 [No Known Allergies*] Review of Systems 2 Constitutional: Constitutional: Reports no additional constitutional complaints, Denies chills, Denies fever(s) and Denies night sweats Eyes: Eyes: Reports no additional eye complaints, Denies blurry vision, Denies change in vision, Denies diplopia, Denies eye discharge, Denies loss of vision and Denies eye pain ENT: Denies dizziness Cardiovascular: Cardiovascular: Reports no additional cardiovascular complaints, Denies chest pain, Denies lightheadedness, Denies Loss of Consciousness and Denies dyspnea Respiratory: Respiratory: Reports no additional respiratory complaints and Denies dyspnea Gastrointestinal: Gastrointestinal: Reports no additional gastrointestinal complaints, Denies abdominal pain, Denies melena, Denies hematochezia, Denies change in bowel habits and Denies change in stool character Genitourinary: Genitourinary: Reports no additional male genitourinary complaints, Denies hematuria, Denies oliguria, Denies difficulty urinating, Denies dysuria, Denies urinary frequency, Denies urinary hesitancy, Denies urinary incontinence and Denies urinary urgency Musculoskeletal: Musculoskeletal: Reports no additional musculoskeletal complaints, Denies numbness and Denies tingling Neurologic: Denies dizziness, Denies loss of vision, Denies numbness and Denies tingling Psychiatric: Psychiatric: Reports no additional psychiatric complaints, Reports auditory hallucinations, Denies homicidal ideation and Reports suicidal ideation Endocrine: Endocrine: Reports no additional endocrine complaints Hematologic/Lymphatic: Hematologic/Lymphatic: Reports no additional hematologic/lymphatic complaints Allergic/Immunologic: Allergic/Immunologic: Reports no additional allergic/immunologic complaints PMFSH Past Medical History Attestation statement: The following information was validated with the patient. Source: old records reviewed and nursing notes reviewed Medical History Cannabis use disorder Asthma No known health problems Surgical History History of surgery on arm Social History Social History Household Members: Family Household Members Other:: Mother Housing: House Do you presently have visiting nurse or other home services: No Unable to assess alcohol history related to: Unknown Alcohol intake: never Patient Tobacco Use Status: Current someday Tobacco user Tobacco use type: Cigarette Smoked in Last 30 Days: Yes e-Cigarette/Vaping Use: Never Used Patient Interested in Nicotine Replacement: Yes Second Hand Smoke Exposure: No Use of substances other than those prescribed or required for medical reasons: Yes Substance Use Type: Marijuana Substance Use Frequency: Chronic Longstanding Last Used Substance: Just Prior to Admission Currently Displaying Signs/Symptoms of Drug Intoxication Withdrawal: No Advance Directives: No Advance Directives Information Provided: Yes Do you have thoughts of harming others: None Do you have a plan to hurt others: No Plan Recently lost weight without trying: No Eating poorly because of decreased appetite: No Nutrition Risks: No Nutritional Risk Poor oral hygiene: No service: No Current occupational status: unemployed Current occupation: left hand dominant Sexual orientation: Straight/Heterosexual Physical Exam 2 Vital Signs: Vital Signs: Last Vital Signs Temp 98.5 F 02/24/25 19:44 Pulse 123 H 02/24/25 19:44 Resp 18 02/24/25 19:44 BP 125/66 02/24/25 19:44 Pulse Ox 98 02/24/25 19:44 O2 Del Method Room Air 02/24/25 19:44 BMI result Body Mass Index 19.8 Const: General: cooperative, no acute distress, alert and awake Nutritional Appearance: well nourished Orientation/consciousness: patient oriented x3 Limitations: no limitations HEENT: Head: Yes normal to inspection and Yes atraumatic Ears: hearing grossly normal bilaterally and external ears normal General nose exam: Normal external nose present, no nasal discharge noted and no epistaxis Face and sinus: Yes normal facial exam, No abrasion and No laceration Mouth: Normal oral and palatal mucosa present, no drooling and no muffled voice Eyes: General: appearance normal, both eyes and all related structures P eriorbital: periorbital findings normal Eyelids: Yes eyelids normal C onjunctivae: conjunctivae normal Pupils: Equal, round and reactive pupils present EOM: EOMs intact bilaterally Neck: Neck: Yes normal visual inspection, Yes full ROM and Yes no lymphadenopathy Chest: Chest palpation & inspection: normal inspection of the chest Resp: Effort & Inspection: normal respiratory effort and able to speak in complete sentences GI: Inspection: Yes normal to inspection Neuro: General: patient oriented x3, moves all extremities and CN's II-XI intact bilaterally Cranial nerves: Yes Equal, round and reactive pupils present Cognition (Neuro): normal cognition Extrem: General: Yes normal to inspection, Yes full ROM and Yes capillary refill normal Psych: Appearance: grossly normal Speech and movement: Pressured speech present Affect: Labile affect present Attitude: cooperative Thought process: Circumstantial thought process present Thought content: Suicidality present Course Course Course Narrative: This is a Rapid Medical Exam performed in triage by Monique Romero PA-C. Full HPI, ROS and PE to be performed by primary ED provider. 24 yo M w/PMHx bipolar, cannabis use d/o presenting to the ED c/o they put rastafarian on me, w/AH telling him to harm himself. Denies SI/HI or SI attempt. Denies ETOH or drug use. Reports compliance with meds PE: anxious, sad/depressed, paranoid delusions Plan: labs, UA, NEAL, CARE team consult Reevaluation(s) Reevaluation #1: 2:38am: patient's seen by care team consulting [facility] recommends patient benefit from adult inpatient. Patient has a bed search. Patient's labs were at baseline. Patient well-appearing Time: 02:38 Reevaluation #2: 02/21/2025 1218 Meghna Roper PA-C ----> Patient admitted to the psychiatric service. Medications Administered Generic Name Dose Route Start Last Admin Trade Name Freq PRN Reason Stop Dose Admin Buspirone HCl 5 mg 02/21/25 10:11 02/21/25 17:18 Buspirone Hcl 5 Mg Tablet PO 5 mg TID PRN Administration anxiety Chlorpromazine HCl 100 mg 02/21/25 16:51 02/24/25 10:25 Chlorpromazine Hcl 100 Mg Tablet PO 100 mg TID PRN Administration agitation Haloperidol 5 mg 02/23/25 15:00 02/24/25 20:37 Haloperidol 5 Mg Tablet PO 5 mg TID JEANIE Administration Hydroxyzine HCl 25 mg 02/21/25 12:18 02/24/25 19:04 Hydroxyzine Hcl 25 Mg Tablet PO 25 mg Q6H PRN Administration mild anxiety Lorazepam 1 mg 02/23/25 10:45 02/24/25 10:25 Lorazepam 1 Mg Tablet PO 1 mg Q4H PRN Administration anxiety/restlessness Nicotine Polacrilex 4 mg 02/21/25 12:18 02/21/25 17:18 Nicotine Polacrilex 2 Mg Gum BUCCAL 4 mg Q2H PRN Administration Nicotine Cravings Olanzapine 20 mg 02/21/25 21:00 02/24/25 20:37 Olanzapine 10 Mg Tablet PO 20 mg BEDTIME JEANIE Administration Trazodone HCl 50 mg 02/21/25 12:18 02/22/25 21:09 Trazodone Hcl 50 Mg Tablet PO 50 mg BEDTIME [id number] PRN Administration Insomnia Discontinued Medications Generic Name Dose Route Start Last Admin Trade Name Freq PRN Reason Stop Dose Admin Chlorpromazine HCl 100 mg 02/21/25 15:00 02/22/25 15:23 Chlorpromazine Hcl 100 Mg Tablet PO 100 mg DAILY@1500 JEANIE Administration Chlorpromazine HCl 100 mg 02/23/25 09:00 02/23/25 08:20 Chlorpromazine Hcl 100 Mg Tablet PO 100 mg DAILY JEANIE Administration Haloperidol 10 mg 02/23/25 10:46 02/23/25 10:50 Haloperidol 5 Mg Tablet PO 02/23/25 10:47 10 mg ONCE ONE Administration Lorazepam 2 mg 02/20/25 15:46 02/20/25 15:49 Lorazepam 1 Mg Tablet PO 02/20/25 15:47 2 mg ONCE ONE Administration Olanzapine 5 mg 02/20/25 15:46 02/20/25 15:49 Olanzapine 5 Mg Tablet PO 02/20/25 15:47 5 mg ONCE ONE Administration Medical Decision Making Medical Decision Making MDM Narrative: Patient is a 24 year old assigned male at with a history of bipolar disorder presenting to the emergency department today with suicidal ideation and feeling as though someone put a rastafarian spell on him. Patient's physical exam was as noted in the physical exam portion of this note. Patient's labs and urine are pending. Patient signed out to BERT Blevins pending labs and CARE team evaluation. 2:38am: patient's seen by care team consulting [facility] recommends patient benefit from adult inpatient. Patient has a bed search. Patient's labs were at baseline. Patient well-appearing Differential Diagnosis Differential Diagnoses: The differential diagnosis associated with the presentation includes SI Hallucinations Admission/Observation Consideration of admission/observation: Escalation of care including admission/observation considered Patient's disposition will be determined after labs, UA, and CARE team evaluation. Lab Data 02/20/25 20:18 02/20/25 20:18 Labs: Lab Results 02/20/25 02/21/25 Range/Units 20:18 10:07 WBC 6.4 (4.8-10.8) X10*3/uL RBC 4.90 (4.60-5.80) X10*6/uL Hgb 15.2 (14.0-18.0) g/dl Hct 42.4 (42.0-52.0) % MCV 86.5 (80.0-98.0) fL MCH 31.0 (27.0-33.0) pg MCHC 35.8 (31.0-36.0) g/dl RDW 11.7 (11.0-16.0) % Plt Count 207 (160-400) X10*3/uL MPV 10.1 (9.4-12.4) fL Immature Gran % (Auto) 0.2 (0.0-0.4) % Neut % (Auto) 65.1 (45-73) % Lymph % (Auto) 27.5 (20-40) % [place] % (Auto) 6.4 (2-11) % Eos % (Auto) 0.2 (0-4) % Baso % (Auto) 0.6 (0-2) % Lymph # (Auto) 1.8 (1.2-4.9) X10*3/uL [place] # (Auto) 0.4 (0.1-1.2) X10*3/uL Eos # (Auto) 0.0 (0.0-0.4) X10*3/uL Baso # (Auto) 0.0 (0.0-0.2) X10*3/uL Abs Immat Gran (auto) 0.01 (0.00-0.03) X10*3/uL Absolute Neuts (auto) 4.2 (2.0-8.3) x10*3/uL Absolute Nucleated RBC 0.000 (0.0-0.012) X10*3/uL Nucleated RBC % (auto) 0.0 (0.0-0.2) /100WBC Sodium 142 (135-145) mmol/L Potassium 3.7 (3.3-5.1) mmol/L Chloride 109 H (96-108) mmol/L Carbon Dioxide 25 (22-29) mmol/L Anion Gap 12 (12-20) BUN 16 (9-16) mg/dL Creatinine 0.92 (0.5-1.4) mg/dL Estim Creat Clear Calc 104.1 Estimated GFR > 60 Random Glucose 95 (60-115) mg/dL Calcium 9.4 (8.4-10.2) mg/dL Magnesium 2.1 (1.6-2.6) mg/dL Total Bilirubin 0.8 (0.0-1.0) mg/dL Direct Bilirubin 0.2 (0.0-0.5) mg/dL AST 19 (5-37) U/L ALT 25 (0-40) U/L Alkaline Phosphatase 57 (39-117) U/L Total Protein 7.1 (6.5-8.0) g/dL Albumin 4.7 (3.5-5.0) g/dL Urine Color Yellow Urine Appearance Clear Urine pH 6.0 (5.0-9.0) Ur Specific [place] >= 1.030 H (1.005-1.025) Urine Protein Negative (Neg-Trace) mg/dL Urine Glucose (UA) Negative (Negative) mg/dL Urine Ketones Negative (Negative) mg/dL Urine Blood Negative (Negative) Urine Nitrite Negative (Negative) Ur Leukocyte Esterase Negative (Negative) Urine Opiates Screen Not Detected (Not Detect) Ur Buprenorphine Scrn Not Detected (Not Detect) ng/mL Ur Oxycodone Screen Not Detected (Not Detect) ng/mL Urine Methadone Screen Not Detected (Not Detect) ng/mL Urine Fentanyl Screen Not Detected (Not Detect) Ur Barbiturates Screen Not Detected (Not Detect) Ur Phencyclidine Scrn Not Detected (Not Detect) Ur Amphetamines Screen Not Detected (Not Detect) U Benzodiazepines Scrn Not Detected (Not Detect) Urine Cocaine Screen Not Detected (Not Detect) U Marijuana (THC) Screen POSITIVE H (Not Detect) Ethyl Alcohol < 10 mg/dL Critical Care Time Critical Care Time Critical Care Time: Yes Total Critical Care Time: 41 Attestation: I spent 41 minutes of Critical Care Time with this patient. This does not include time spent on separately reported billable procedures. Discharge Plan Discharge Clinical Impression: Suicidal ideation, Auditory hallucination Patient Disposition: Admitted As Inpatient Interventions: Admission Worksheet (ED) Last Done: 02/21/25 12:21 Discharge Date/Time: 02/21/25 14:53
[2025-02-20 15:19] VITALS: BP 147/69; PULSE 95; RESP 16; TEMP 37.7; O2SAT 98; BMI 19.8
[2025-02-20] MEDS: OLANZapine 5 MG TABLET PO (15:49)
[2025-02-20] MEDS: LORazepam 1 MG TABLET 2 MG PO (15:49)
--- NOTE | 2025-02-20 16:14 | PC.NURSE ---
Pt arrived to pod from waiting area. Pt is alert; he is oriented to person, situation, and day. Pt reports SI at this time with no plan. Pt makes frequent statements of they did moravian on me and states that he is going to . He also reports that he has schizophrenia and feels like he is going to start swinging. Pt requests medications to calm down and wishes to be alone. He continues to pace about the pod Pt advised that ED provider will be contacted for orders. Pt not safe to completed blood draw at this time.
--- NOTE | 2025-02-20 18:18 | PC.NURSE ---
Pts Girlfriend Vivi calls inquiring about an update on Pt. Pt gives this RN verbal permission to speak with Vivi regarding his care here. Vivi advised that Pt is still undergoing a workup at this time and will likely be here for the night. Vivi reports she will wait for a call to come get him and he can call her whenever.
[2025-02-20 20:24] LABS: MANUAL DIFF FLAG NO
[2025-02-20 20:32] LABS: Basophils Percent Auto 0.6 % (0-2); Eosinophils Percent Auto 0.2 % (0-4); Hematocrit 42.4 % (42.0-52.0); Hemoglobin 15.2 g/dl (14.0-18.0); Imm Gran Abs Auto 0.01 X10*3/uL (0.00-0.03); Imm Gran Pct Auto 0.2 % (0.0-0.4); Lymphocytes Absolute Auto 1.8 X10*3/uL (1.2-4.9); Lymphocytes Percent Auto 27.5 % (20-40); Mean Corpuscular HGB Conc 35.8 g/dl (31.0-36.0); Mean Corpuscular Volume 86.5 fL (80.0-98.0); Mean Platelet Volume 10.1 fL (9.4-12.4); Monocytes Absolute Auto 0.4 X10*3/uL (0.1-1.2); Monocytes Percent Auto 6.4 % (2-11); Neutrophils Absolute Auto 4.2 x10*3/uL (2.0-8.3); Neutrophils Percent Auto 65.1 % (45-73); Platelet Count 207 X10*3/uL (160-400); Red Cell Distribution Width 11.7 % (11.0-16.0); White Blood Count 6.4 X10*3/uL (4.8-10.8)
[2025-02-20 20:46] LABS: Alanine Aminotransferase 25 U/L (0-40); Albumin Level 4.7 g/dL (3.5-5.0); Alkaline Phosphatase 57 U/L (39-117); Anion Gap 12 (12-20); Aspartate Amino Transferase 19 U/L (5-37); Bilirubin Direct 0.2 mg/dL (0.0-0.5); Bilirubin Total 0.8 mg/dL (0.0-1.0); Blood Urea Nitrogen 16 mg/dL (9-16); Calcium 9.4 mg/dL (8.4-10.2); Carbon Dioxide 25 mmol/L (22-29); Chloride 109 mmol/L (96-108); Creatinine Clr Calc Pharmacy 104.1; Estimated Glomerular Filt Rate > 60; Ethanol < 10 mg/dL; Glucose Random 95 mg/dL (60-115); Magnesium 2.1 mg/dL (1.6-2.6); Potassium 3.7 mmol/L (3.3-5.1); Sodium 142 mmol/L (135-145); Total Protein 7.1 g/dL (6.5-8.0)
--- NOTE | 2025-02-20 22:35 | PC.NURSE ---
Addendum entered by Will Holcomb RN 02/21/25 04:53: place change roof bolter occurred prior to charting of belongings list Original Note: place change roof bolter documentation not complete by previous nurse. changed over in family room. pt is currently in green scrubs, belongings contained in pod locker #7. please see belongings list charting from 1526 - confirmed with tech at this time
[2025-02-21 06:35] VITALS: BP 128/57; PULSE 84; RESP 14; TEMP 36.9; O2SAT 97
--- NOTE | 2025-02-21 07:31 | ECG_ITS ---
Test Reason : qtc check Blood Pressure : */* mmHG Vent. Rate : 79 BPM Atrial Rate : 79 BPM P-R Int : 144 ms QRS Dur : 86 ms QT Int : 356 ms P-R-T Axes : 77 31 64 degrees QTcB Int : 408 ms Normal sinus rhythm with sinus arrhythmia Normal ECG When compared with ECG of 07-Sep-2017 21:51, No significant change was found Referred By: Generic ED Physician Electronically Signed By: Sharad Chavez
--- NOTE | 2025-02-21 10:10 | PC.NURSE ---
PT UP THIS MORNING, VERY TEARFUL, MAKING PARANOID STATEMENTS THEY DID SOMETHING TO ME . ABLE TO BE REDIRECTED, STATES HE IS TAKING ALL MEDS FROM PHARMACY ORDERED. THEY'RE NOT WORKING THOUGH , REVIEWED IMPORTANCE OF CONTINUING HOME MEDS WHILE HE IS HERE. MED ORDERS REQUESTED. PT ABLE TO PROVIDE URINE SPECIMEN, EKG BEING COMPLETED AT THIS TIME.
[2025-02-21 10:17] LABS: Appearance Urine Clear; Color Urine Yellow; Glucose Urine UA Negative (Negative); Leukocyte Esterase Urine Negative (Negative); Nitrite Urine Negative (Negative); Specific Gravity - Urine >= 1.030 (1.005-1.025); Urine Blood Negative (Negative); Urine Ketones Negative (Negative); Urine Protein Negative (Neg-Trace)
[2025-02-21 10:32] LABS: Amphetamine Screen Urine Not Detected (Not Detect); Barbiturates, Urine Not Detected (Not Detect); Benzodiazepines Screen Urine Not Detected (Not Detect); Buprenorphine Scr Not Detected (Not Detect); Cannabinoid Screen Urine POSITIVE (Not Detect); Cocaine Screen Urine Not Detected (Not Detect); Fentanyl, urine Not Detected (Not Detect); Methadone Screen, Urine Not Detected (Not Detect); Opiate Screen Urine Not Detected (Not Detect); Oxycodone Screen Urine Not Detected (Not Detect); Phencyclidine Screen Urine Not Detected (Not Detect)
[2025-02-21] MEDS: busPIRone HCl 5 MG TABLET PO ×2 (12:08→17:18)
--- NOTE | 2025-02-21 13:28 | PHA.MEDREC ---
Addendum entered by Kay Cosby RPh 02/21/25 13:32: reviewed by [facility]. Original Note: Pharmacy Consult ? Medication Reconciliation Pharmacy has reviewed the medication reconciliation done by nursing. Utilized claims to confirm.
[2025-02-21 15:00] VITALS: BP 138/72; PULSE 92; RESP 18; TEMP 37.2; O2SAT 96
[2025-02-21] MEDS: hydrOXYzine HCL 25 MG TABLET PO (15:06)
[2025-02-21] MEDS: chlorproMAZINE HCl 100 MG TABLET PO (15:06)
[2025-02-21 15:23] VITALS: BMI 19.8
[2025-02-21] MEDS: Nicotine Polacrilex 2 MG GUM 4 MG BUCCAL (17:18)
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
[2025-02-21 20:00] VITALS: BP 122/61; PULSE 95; RESP 14; TEMP 37; O2SAT 96
[2025-02-21] MEDS: OLANZapine 10 MG TABLET 20 MG PO (21:17)
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
[2025-02-22] MEDS: chlorproMAZINE HCl 100 MG TABLET PO ×4 (09:27→21:09)
[2025-02-22 10:01] VITALS: BP 112/62; PULSE 95; RESP 18; TEMP 37.1; O2SAT 99
[2025-02-22] MEDS: hydrOXYzine HCL 25 MG TABLET PO (16:13)
[2025-02-22 19:57] VITALS: BP 109/62; PULSE 94; RESP 16; TEMP 36.8; O2SAT 95
[2025-02-22] MEDS: OLANZapine 10 MG TABLET 20 MG PO (20:04)
[2025-02-22] MEDS: traZODone HCL 50 MG TABLET PO ×2 (20:04→21:09)
--- NOTE | 2025-02-23 08:02 | P.PNPSI_ITS ---
Subjective Subjective Date of Service: 02/23/25 Reason For Visit: Bipolar disorder with psychosis Subjective Notes: Section 12B Healthcare Proxy: No Guardianship: No Medical Problems Affecting Mental Status: No Interim History: 24 yo feeling really on edge and co ah and psychosis- with nursing took prn 10mg haldol with good effect- I change his thorazine to haldol and then discussed with patient- He agreed to this plan- Medication Compliance: Yes Side effects from medications: No Attending Groups: Intermittent Review of Systems Acute medical concerns: No Medical Review of Systems: unchanged Mental Status Exam Mental Status Exam Patient Appearance: Appropriate Patient Orientation: Person, Place, Time and Situation Level of Consciousness: Awake Patient Behavior: Guarded, Cooperative and Good Eye Contact Mood Description: Apprehensive Affect Description: Blunted Patient Cognition Impaired: No Ability to Follow Directions: Fair Speech Pattern: Clear Hallucinations: Auditory Delusions: Being Controlled and Paranoid Ideation Thought Process: Intact Thought Content: positive for Perseveration Depressive Symptoms: Increased Anxiety and Muscle Tension Abnormal Motor Activity Signs and Symptoms: Restlessness Judgement: Fair Diagnostics Vital Signs (24Hr): Vital Signs - 24 hr 02/22/25 10:01 02/22/25 19:57 Temperature 98.8 F 98.3 F Pulse Rate 95 94 Respiratory Rate 18 16 Blood Pressure 112/62 109/62 Pulse Oximetry 99 95 Oxygen Delivery Method Room Air Room Air BMI result Body Mass Index 19.8 Labs 02/20/25 20:18 02/20/25 20:18 Labs: Laboratory Results - last 48 hr 02/21/25 10:07 Urine Color Yellow Urine Appearance Clear Urine pH 6.0 Ur Specific [place] >= 1.030 H Urine Protein Negative Urine Glucose (UA) Negative Urine Ketones Negative Urine Blood Negative Urine Nitrite Negative Ur Leukocyte Esterase Negative Urine Opiates Screen Not Detected Ur Buprenorphine Scrn Not Detected Ur Oxycodone Screen Not Detected Urine Methadone Screen Not Detected Urine Fentanyl Screen Not Detected Ur Barbiturates Screen Not Detected Ur Phencyclidine Scrn Not Detected Ur Amphetamines Screen Not Detected U Benzodiazepines Scrn Not Detected Urine Cocaine Screen Not Detected U Marijuana (THC) Screen POSITIVE H Medications Medications Current Medications Acetaminophen (Acetaminophen 325 Mg Tablet) 650 mg PO Q6H PRN PRN Reason: Headache/Pain, Scale 1-10 Al Hydroxide/Mg Hydroxide (Magnesium Hydrox/Alum Hydrox 30 Ml Oral.Susp) 30 ml PO Q6H PRN PRN Reason: Heartburn/Nausea Buspirone HCl (Buspirone Hcl 5 Mg Tablet) 5 mg PO TID PRN PRN Reason: anxiety Last Admin: 02/21/25 17:18 Dose: 5 mg Chlorpromazine HCl (Chlorpromazine Hcl 100 Mg Tablet) 100 mg PO DAILY@1500 JEANIE Last Admin: 02/22/25 15:23 Dose: 100 mg Chlorpromazine HCl (Chlorpromazine Hcl 100 Mg Tablet) 100 mg PO TID PRN PRN Reason: agitation Last Admin: 02/22/25 21:09 Dose: 100 mg Chlorpromazine HCl (Chlorpromazine Hcl 100 Mg Tablet) 100 mg PO DAILY JEANIE Hydroxyzine HCl (Hydroxyzine Hcl 25 Mg Tablet) 25 mg PO Q6H PRN PRN Reason: mild anxiety Last Admin: 02/22/25 16:13 Dose: 25 mg Magnesium Hydroxide (Milk Of Magnesia 30 Ml Oral.Susp) 30 ml PO DAILY PRN PRN Reason: Constipation Nicotine Polacrilex (Nicotine Polacrilex 2 Mg Gum) 4 mg BUCCAL Q2H PRN PRN Reason: Nicotine Cravings Last Admin: 02/21/25 17:18 Dose: 4 mg Olanzapine (Olanzapine 10 Mg Tablet) 20 mg PO BEDTIME JEANIE Last Admin: 02/22/25 20:04 Dose: 20 mg Trazodone HCl (Trazodone Hcl 50 Mg Tablet) 50 mg PO BEDTIME MRX1 PRN PRN Reason: Insomnia Last Admin: 02/22/25 21:09 Dose: 50 mg Allergies Allergies Allergy/AdvReac Type Severity Reaction Status Date / Time No Known Allergies Allergy Verified 02/20/25 15:22 [No Known Allergies*] Assessment & Plan Patient educated on: medication risk/benefits Informed Consent: understands Reason for continued inpatient stay Substantial Risk for: harm to self and rapid decompensation Time Spent With Patient Time: Total time managing care of this patient today ____ minutes.
[2025-02-23] MEDS: chlorproMAZINE HCl 100 MG TABLET PO ×3 (08:20→18:19)
[2025-02-23 08:31] VITALS: BP 110/56; PULSE 107; RESP 16; TEMP 36.2; O2SAT 97
[2025-02-23] MEDS: hydrOXYzine HCL 25 MG TABLET PO (10:43)
[2025-02-23] MEDS: LORazepam 1 MG TABLET PO ×2 (10:50→18:04)
[2025-02-23] MEDS: HaloperidoL 5 MG TABLET 10 MG PO (10:50)
[2025-02-23] MEDS: HaloperidoL 5 MG TABLET PO ×2 (14:14→22:11)
[2025-02-23 19:47] VITALS: BP 136/84; PULSE 110; TEMP 36.4; O2SAT 99
[2025-02-23] MEDS: OLANZapine 10 MG TABLET 20 MG PO (22:11)
[2025-02-24] MEDS: HaloperidoL 5 MG TABLET PO ×3 (08:32→20:37)
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
[2025-02-24] MEDS: LORazepam 1 MG TABLET PO (10:25)
[2025-02-24] MEDS: chlorproMAZINE HCl 100 MG TABLET PO (10:25)
[2025-02-24] MEDS: hydrOXYzine HCL 25 MG TABLET PO (19:04)
[2025-02-24 19:44] VITALS: BP 125/66; PULSE 123; RESP 18; TEMP 36.9; O2SAT 98
[2025-02-24] MEDS: OLANZapine 10 MG TABLET 20 MG PO (20:37)
[2025-02-25 07:48] VITALS: BP 119/59; PULSE 72; TEMP 35.9; O2SAT 98
[2025-02-25] MEDS: HaloperidoL 5 MG TABLET PO ×3 (08:22→20:59)
--- NOTE | 2025-02-25 09:25 | P.PNPSI_ITS ---
Subjective Subjective Date of Service: 03/19/25 Reason For Visit: Bipolar disorder with psychosis Interim History: Met with patient; discussed with team; reviewed chart Patient says he wants to go home and does not want to sign a CV. He says the meds are working now and that AH he is getting better. 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 Patient says that being on the unit is making him anxious and he does not think he needs to remain on the unit for further stabilization. Mental Status Exam Mental Status Exam Patient Appearance: Appropriate Patient Orientation: Person, Place and Situation Level of Consciousness: Alert Patient Behavior: Talkative and Cooperative Mood Description: Constricted Affect Description: Constricted Patient Cognition Impaired: No Ability to Follow Directions: Good Speech Pattern: Spontaneous Speech Memory Description: Episodic Impaired Hallucinations: None (denies) Delusions: Present Thought Process: Goal Oriented Thought Content: positive for [place] (on discharge), positive for Suicidal Ideation (denies) and positive for Homicidal Ideation (denies) Judgement and Insight: improved Diagnostics Vital Signs (24Hr): Vital Signs - 24 hr 02/24/25 19:44 02/25/25 07:48 Temperature 98.5 F 96.7 F L Pulse Rate 123 H 72 Respiratory Rate 18 Blood Pressure 125/66 119/59 L Pulse Oximetry 98 98 Oxygen Delivery Method Room Air Room Air BMI result Body Mass Index 19.8 Labs 02/20/25 20:18 02/20/25 20:18 Medications Medications Current Medications Acetaminophen (Acetaminophen 325 Mg Tablet) 650 mg PO Q6H PRN PRN Reason: Headache/Pain, Scale 1-10 Al Hydroxide/Mg Hydroxide (Magnesium Hydrox/Alum Hydrox 30 Ml Oral.Susp) 30 ml PO Q6H PRN PRN Reason: Heartburn/Nausea Buspirone HCl (Buspirone Hcl 5 Mg Tablet) 5 mg PO TID PRN PRN Reason: anxiety Last Admin: 02/21/25 17:18 Dose: 5 mg Chlorpromazine HCl (Chlorpromazine Hcl 100 Mg Tablet) 100 mg PO TID PRN PRN Reason: agitation Last Admin: 02/24/25 10:25 Dose: 100 mg Haloperidol (Haloperidol 5 Mg Tablet) 5 mg PO TID JEANIE Last Admin: 02/25/25 08:22 Dose: 5 mg Hydroxyzine HCl (Hydroxyzine Hcl 25 Mg Tablet) 25 mg PO Q6H PRN PRN Reason: mild anxiety Last Admin: 02/24/25 19:04 Dose: 25 mg Lorazepam (Lorazepam 1 Mg Tablet) 1 mg PO Q4H PRN PRN Reason: anxiety/restlessness Last Admin: 02/24/25 10:25 Dose: 1 mg Magnesium Hydroxide (Milk Of Magnesia 30 Ml Oral.Susp) 30 ml PO DAILY PRN PRN Reason: Constipation Nicotine Polacrilex (Nicotine Polacrilex 2 Mg Gum) 4 mg BUCCAL Q2H PRN PRN Reason: Nicotine Cravings Last Admin: 02/21/25 17:18 Dose: 4 mg Olanzapine (Olanzapine 10 Mg Tablet) 20 mg PO BEDTIME JEANIE Last Admin: 02/24/25 20:37 Dose: 20 mg Trazodone HCl (Trazodone Hcl 50 Mg Tablet) 50 mg PO BEDTIME MRX1 PRN PRN Reason: Insomnia Last Admin: 02/22/25 21:09 Dose: 50 mg Allergies Allergies Allergy/AdvReac Type Severity Reaction Status Date / Time No Known Allergies Allergy Verified 02/20/25 15:22 [No Known Allergies*] Assessment & Plan Assessment & Plan (1) Bipolar disorder: Status: Acute Code(s): F31.9 - Bipolar disorder, unspecified (2) Cannabis use disorder: Status: Acute Code(s): F12.90 - Cannabis use, unspecified, uncomplicated Plan 02/24/25: Section 12B to 02/26/25. Continue current regime Encourage milieu participation. 02/25 Patient says he wants to go home and does not want to sign a CV. He says the meds are working now and that AH he is getting better. 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 Patient says that being on the unit is making him anxious and he does not think he needs to remain on the unit for further stabilization. Patient educated on: diagnosis, medication risk/benefits and therapeutic strategies Informed Consent: understands and further education needed Reason for continued inpatient stay Substantial Risk for: rapid decompensation Time Spent With Patient Time: Total time managing care of this patient today ____ minutes.
[2025-02-25] MEDS: LORazepam 1 MG TABLET PO ×2 (09:51→18:00)
[2025-02-25] MEDS: chlorproMAZINE HCl 100 MG TABLET PO ×2 (11:10→16:55)
[2025-02-25] MEDS: OLANZapine 5 MG TABLET PO (19:11)
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
[2025-02-25 19:59] VITALS: BP 140/88; PULSE 105; RESP 16; TEMP 37.2; O2SAT 98
[2025-02-25] MEDS: OLANZapine 10 MG TABLET 20 MG PO (21:00)
[2025-02-26 07:55] VITALS: BP 163/78; PULSE 72; TEMP 37; O2SAT 97
[2025-02-26] MEDS: HaloperidoL 5 MG TABLET PO (08:55)
[2025-02-26] MEDS: chlorproMAZINE HCl 100 MG TABLET PO (08:55)
[2025-02-26] MEDS: LORazepam 1 MG TABLET 2 MG PO ×2 (10:47→17:28)
[2025-02-26] MEDS: HaloperidoL 5 MG TABLET 10 MG PO ×2 (11:21→20:46)
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
[2025-02-26 20:00] VITALS: BP 122/60; PULSE 100; RESP 16; TEMP 37.2; O2SAT 98
[2025-02-26] MEDS: OLANZapine 10 MG TABLET 20 MG PO (20:47)
[2025-02-27 07:00] VITALS: BMI 22.4
[2025-02-27 08:00] VITALS: BP 117/72; PULSE 78; RESP 16; TEMP 37.4; O2SAT 95
[2025-02-27] MEDS: HaloperidoL 5 MG TABLET 10 MG PO ×4 (09:40→21:12)
[2025-02-27] MEDS: chlorproMAZINE HCl 100 MG TABLET PO ×2 (10:49→15:51)
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
[2025-02-27] MEDS: LORazepam 1 MG TABLET 2 MG PO (17:00)
[2025-02-27] MEDS: Acetaminophen 325 MG TABLET 650 MG PO (17:18)
[2025-02-27] MEDS: hydrOXYzine HCL 25 MG TABLET PO (18:25)
[2025-02-27 20:00] VITALS: BP 121/67; PULSE 78; TEMP 36.4; O2SAT 98
[2025-02-27] MEDS: OLANZapine 10 MG TABLET 20 MG PO (21:11)
[2025-02-28 07:58] VITALS: BP 125/79; PULSE 116; RESP 18; TEMP 37.2; O2SAT 98
[2025-02-28] MEDS: HaloperidoL 5 MG TABLET 10 MG PO (08:38)
[2025-02-28] MEDS: hydrOXYzine HCL 25 MG TABLET PO (09:59)
--- NOTE | 2025-02-28 16:34 | PM.PSYDC ---
DS: Providers Provider Date of admission: 02/21/25 12:35 Primary care physician: Unknown Physician DS: Diagnosis Discharge Diagnosis (1) Bipolar disorder: Status: Acute (2) Cannabis use disorder: Status: Acute DS: Medications Discharge Medications Home Medications: Previous Rx's ?Medication ?Instructions ?Recorded haloperidol 5 mg tablet 10 mg (2 x 5 mg) PO TID #90 tabs 02/27/25 hydroxyzine HCl 25 mg tablet 25 mg PO Q6H PRN mild anxiety #60 02/27/25 tabs olanzapine 10 mg tablet 20 mg (2 x 10 mg) PO BEDTIME #30 02/27/25 tabs DS: Summary Time Spent with Patient Time attestation: Total time managing care of this patient today ____ minutes. Discharge Plan Discharge Anticipated Discharge Date/Time: 02/28/25 12:00 Patient Disposition: Home, Self-Care Discharge Diagnosis: Bipolar Disorder Cannabis Use Disorder Referrals: [facility] Psychiatry with Antelmo Bautista [Other] - 03/14/25 5:20 pm (This appointment in in-person. ) [facility] Therapy w Medina Carballo [Other] - 03/03/25 9:00 am (This person is in-person.) [facility] ([facility] [Other] - 1 Week ([facility] offers comprehensive outpatient treatment for young adults between the ages of 16 to 30 years old who have had an experience of psychosis within the previous three years. [facility] offers comprehensive outpatient treatment for individuals age 16-30, and their families, including: - Groups provide the basis for community-building and peer support Participants also get to know each other through activities such as cooking and socializing - Individual therapy gives participants the opportunity to build a meaningful relationship with a professional therapist - Psychiatric Services works with participants who may be prescribed medication to help calm uncomfortable experiences - Family and Network Meetings are held with the [facility] team, participant, and his or her family to discuss difficult topics and discover new ways of moving forward) Physician,Shabbir J [Primary Care Provider] - 1 Week Discharge Medications: New haloperidol 5 mg Tablet 10 mg PO TID Qty: 90 0RF olanzapine 10 mg Tablet 20 mg PO BEDTIME Qty: 30 0RF hydroxyzine HCl 25 mg Tablet 25 mg PO Q6H PRN (Reason: mild anxiety) Qty: 60 0RF Discontinued chlorpromazine 100 mg Tablet 100 mg PO DAILY@1500 30 Days Qty: 30 0RF olanzapine 10 mg Tablet 20 mg PO BEDTIME 30 Days Qty: 60 0RF buspirone 5 mg tablet 5 mg PO TID PRN (Reason: anxiety) hydroxyzine HCl 10 mg tablet 10 mg PO TID PRN (Reason: anxiety) Discharge Orders: Discharge Order (Routine); Ordered 02/28/25 Ordered By: Myrna Paz Diet: Advance to usual diet Activity on Discharge: As tolerated Stand Alone Forms: Patient Portal Discharge page, Community Support Print Language: Japanese Care Plan Goals: Mood and Behavioral Stabilization Abstinence from substances Health Concerns: Mood and Behavioral Stabilization Abstinence from substances Plan of Treatment: Attend scheduled appointments Take medications as directed Abstain from substance use Assessment: Discharge from [facility] to family care. Discharge Date/Time: 02/28/25 11:05
== END 2025-02-28 11:05 | disposition home or self-care (01) | DRG 753 ==
LOC: HO.ED 02-21 12:20 → HO.PM5 02-21 12:36
PROVIDERS: Physician Assistant; Admitting Provider Clinical Nurse Specialist Psychiatric/Mental Health, Adult; Emergency Provider Emergency Medicine Emergency Medical Services; Visit Provider Clinical Nurse Specialist Psychiatric/Mental Health, Adult
DX: F31.9 Bipolar disorder, unspecified (principal); F12.90 Cannabis use, unspecified, uncomplicated; F17.210 Nicotine dependence, cigarettes, uncomplicated; Z71.6 Tobacco abuse counseling; Z79.899 Other long term (current) drug therapy
CPT/HCPCS: 36415; 80048; 80076; 80307; 81003; 83735; 85025; 93005; 99285; S9485

== ENCOUNTER → 2025-02-21 07:31 | Outpatient (BNV) | payer MEDICAID, SELFPAY | PROVIDERS: Admitting Provider Clinical Nurse Specialist Psychiatric/Mental Health, Adult; Emergency Provider Emergency Medicine Emergency Medical Services; Visit Provider Internal Medicine Cardiovascular Disease | DX: Z13.6 Encounter for screening for cardiovascular disorders (principal) | CPT/HCPCS: 93010 ==

== ENCOUNTER → 2025-02-21 12:35 | Outpatient (BNV) | payer OTHER, SELFPAY | PROVIDERS: Admitting Provider Clinical Nurse Specialist Psychiatric/Mental Health, Adult; Emergency Provider Emergency Medicine Emergency Medical Services; Visit Provider Clinical Nurse Specialist Psychiatric/Mental Health, Adult | DX: F31.9 Bipolar disorder, unspecified (principal); F12.90 Cannabis use, unspecified, uncomplicated | CPT/HCPCS: 99231; 99232 ==

== ENCOUNTER 2025-11-05 13:25 | Emergency (ER) | payer MEDICAID, SELFPAY ==
[2025-11-05 13:27] VITALS: BP 142/80; PULSE 115; O2SAT 99; BMI 25.8
--- NOTE | 2025-11-05 13:27 | ED_ITS ---
HPI - General Adult General Chief complaint: Psychiatric Symptoms Stated complaint: ANXIOUS, SHAKING UNCNTROLLABLY, Time Seen by Provider: 11/05/25 13:27 Source: patient and EMS Mode of arrival: EMS Limitations: no limitations History of Present Illness ED Provider: Meghna Roper PA-C HPI narrative: Patient is a 25 year old male with a history of bipolar disorder, asthma, and cannabis use presenting to the emergency department today feeling anxious after smoking marijuana. Patient states that he smoked some marijuana this morning and is now feeling weird in his head. Patient denies any thoughts of hurting himself or others. Patient denies any other complaints at this time. Related Data Previous Rx's ?Medication ?Instructions ?Recorded haloperidol 5 mg tablet 10 mg (2 x 5 mg) PO TID #90 tabs 02/27/25 hydroxyzine HCl 25 mg tablet 25 mg PO Q6H PRN mild anx iety #60 02/27/25 tabs olanzapine 10 mg tablet 20 mg (2 x 10 mg) PO BEDTIME #30 02/27/25 tabs Allergies Allergy/AdvReac Type Severity Reaction Status Date / Time No Known Allergies (No Known Allergy Verified 11/05/25 13:28 Allergies*) Review of Systems 2 Constitutional: Constitutional: Reports as per HPI Eyes: Eyes: Reports as per HPI ENT: Reports as per HPI Cardiovascular: Cardiovascular: Reports as per HPI Respiratory: Respiratory: Reports as per HPI Gastrointestinal: Gastrointestinal: Reports as per HPI Genitourinary: Genitourinary: Reports as per HPI Musculoskeletal: Musculoskeletal: Reports as per HPI Integumentary/Breasts: Skin/Breast: Reports as per HPI Neurologic: Reports as per HPI Psychiatric: Psychiatric: Reports as per HPI Endocrine: Endocrine: Reports as per HPI Hematologic/Lymphatic: Hematologic/Lymphatic: Reports as per HPI Allergic/Immunologic: Allergic/Immunologic: Reports as per HPI PMF Past Medical History Attestation statement: The following information was validated with the patient. Source: old records reviewed and nursing notes reviewed Medical History Cannabis use disorder Asthma No known health problems Surgical History History of surgery on arm Social History Social History Household Members: Family Household Members Other:: Mother Housing: House Do you presently have visiting nurse or other home services: No Alcohol intake: never Patient Tobacco Use Status: Current someday Tobacco user Tobacco use type: Cigarette e-Cigarette/Vaping Use: Never Used Second Hand Smoke Exposure: No Substance Use Type: Marijuana Advance Directives: No Advance Directives Information Provided: Yes Do you have a plan to hurt others: No Plan service: No Current occupational status: unemployed Current occupation: left hand dominant Sexual orientation: Unable to collect Physical Exam ED Vital Signs: Vital Signs - 24 hr 11/05/25 13:35 11/05/25 15:45 Temperature 98.4 F 98.4 F Pulse Rate 115 H 115 H Respiratory Rate 18 18 Blood Pressure 140/85 H 140/85 H Pulse Oximetry 98 98 BMI result Body Mass Index 25.8 Const General: cooperative, no acute distress, alert and awake Nutritional Appearance: well nourished Orientation/consciousness: patient oriented x3 HENMT Head: Yes normal to inspection and Yes atraumatic Ears: hearing grossly normal bilaterally and external ears normal General nose exam: Normal external nose present, no nasal discharge noted and no epistaxis Face and sinus: Yes normal facial exam, No abrasion and No laceration Mouth: Normal oral and palatal mucosa present, no drooling and no muffled voice Eyes General: appearance normal, both eyes and all related structures Periorbital: periorbital findings normal Eyelids: Yes eyelids normal Conjunctivae: conjunctivae normal Pupils: Equal, round and reactive pupils present EOM: EOMs intact bilaterally Neck Neck: Yes normal visual inspection and Yes full ROM Resp Effort & Inspection: normal respiratory effort and able to speak in complete sentences Neuro General: patient oriented x3, moves all extremities and CN's II-XI intact bilaterally Cranial nerves: Yes Equal, round and reactive pupils present Cognition (Neuro): normal cognition Extrem General: Yes normal to inspection, Yes full ROM and Yes capillary refill normal Psych Appearance: grossly normal Mental Status: mental status grossly normal Speech and movement: Normal speech and movement present Affect: Anxious affect present Attitude: cooperative Medical Decision Making Medical Decision Making MDM Narrative: Patient is a 25 year old male with a history of bipolar disorder, asthma, and cannabis use presenting to the emergency department today feeling anxious after smoking marijuana. Patient's physical exam was as noted in the physical exam portion of this note. Patient's blood work was unremarkable. Patient was evaluated by the CARE team who contacted the patient's mother and confirmed the patient is safe to be discharged home. Patient contracts for safety. I explained my physical exam findings as well as all test results to the patient. I answered all questions asked by the patient. I stressed the importance of the patient taking his medication as directed (either prescribed or as the over the counter packaging recommends). I stressed the importance of the patient following up with his primary care provider and his psychiatric providers. I stressed the importance of the patient returning to the emergency department immediately if his symptoms were to worsen or if he were to develop any thoughts of hurting himself, thoughts of hurting others, dizziness, shortness of breath, difficulty breathing, chest pain, blurry vision, loss of vision, nausea, vomiting, abdominal pain, fever, chills, back pain, or any other complaints. Patient verbalized agreement and understanding with this treatment plan and discharge. Note: Patient was in observation pending CARE team evaluation from 1450 until 1545 when it was determined he was appropriate for discharge. Differential Diagnosis Differential Diagnoses: The differential diagnosis associated with the presentation includes Psychosis Anxiety Marijuana use Admission/Observation Consideration of admission/observation: Escalation of care including admission/observation considered Patient would have been admitted to the hospital had his work up had any findings where hospital admission was appropriate and his clinical presentation warranted hospital admission. Consult Healthcare Provider Management of the patient was discussed with: Behavioral Health Provider (I spoke with the CARE team as noted in the MDM Rationale portion of this note. ) Lab Data [facility] Lab Attestation statement: I reviewed the patient's lab results. My interpretation of these results are in the MDM Rationale portion of this note. 11/05/25 14:07 11/05/25 14:07 Labs: Lab Results 11/05/25 Range/Units 14:07 WBC 10.2 (4.8-10.8) X10*3/uL RBC 5.37 (4.60-5.80) X10*6/uL Hgb 16.0 (14.0-18.0) g/dl Hct 44.9 (42.0-52.0) % MCV 83.6 (80.0-98.0) fL MCH 29.8 (27.0-33.0) pg MCHC 35.6 (31.0-36.0) g/dl RDW 12.0 (11.0-16.0) % Plt Count 190 (160-400) X10*3/uL MPV 10.0 (9.4-12.4) fL Immature Gran % (Auto) 0.2 (0.0-0.4) % Neut % (Auto) 82.7 H (45-73) % Lymph % (Auto) 9.9 L (20-40) % [place] % (Auto) 6.5 (2-11) % Eos % (Auto) 0.3 (0-4) % Baso % (Auto) 0.4 (0-2) % Lymph # (Auto) 1.0 L (1.2-4.9) X10*3/uL [place] # (Auto) 0.7 (0.1-1.2) X10*3/uL Eos # (Auto) 0.0 (0.0-0.4) X10*3/uL Baso # (Auto) 0.0 (0.0-0.2) X10*3/uL Abs Immat Gran (auto) 0.02 (0.00-0.03) X10*3/uL Absolute Neuts (auto) 8.5 H (2.0-8.3) x10*3/uL Absolute Nucleated RBC 0.000 (0.0-0.012) X10*3/uL Nucleated RBC % (auto) 0.0 (0.0-0.2) /100WBC Sodium 143 (135-145) mmol/L Potassium 3.5 (3.3-5.1) mmol/L Chloride 108 (96-108) mmol/L Carbon Dioxide 25 (22-29) mmol/L Anion Gap 14 (12-20) BUN 14 (9-16) mg/dL Creatinine 1.02 (0.5-1.4) mg/dL Estim Creat Clear Calc 108.0 Estimated GFR > 60 Random Glucose 115 (60-115) mg/dL Calcium 9.7 (8.4-10.2) mg/dL Total Bilirubin 0.3 (0.0-1.0) mg/dL AST 26 (5-37) U/L ALT 40 (0-40) U/L Alkaline Phosphatase 73 (39-117) U/L Total Protein 7.5 (6.5-8.0) g/dL Albumin 5.0 (3.5-5.0) g/dL Ethyl Alcohol < 10 mg/dL Independent Historian Clinical information obtained from an independent historian. History obtained from or confirmed by: EMS (EMS provided additional history and confirmed the history provided by the patient. ) Discharge Plan Discharge Clinical Impression: Cannabis use with anxiety disorder Patient Disposition: Home, Self-Care Instructions: Cannabis Use Disorder (ED) Additional Instructions: Please consider the cessation of marijuana use. You were seen for a concern regarding your mental / behavioral behavioral health. It is important after this visit today that you follow up with either your mental / behavioral health or primary care provider within 7 days (from today).? Return for any worsening symptoms or concerns such as thoughts of harming yourself or others. Please call 911 immediately if you feel your mental health is worsening.? National Suicide and Crisis Lifeline: Available 24 hours a day, 7 days a week, 365 days a year Dial 988 with any telephone to speak to someone [facility] (Mental / Behavioral health therapist: [address] [place] [address] [facility] at [facility]: [address] [place] [address] Open from 10am - 12pm (walk ins welcome) [facility] Crisis Services: [address] [place] [address] Walk in hours from 10am - 12pm Behavioral health Network: [address] [place] [phone] [address] [place] [phone] [phone] Monday through Monday 8am - 8pm Monday and Monday 9am - 5pm IF you are prescribed medications and/or you are taking over the counter medications - it is very important you continue to do so as prescribed / directed unless told otherwise. Follow up with your primary care provider. Return to the emergency department immediately if your symptoms worsen or if you develop any numbness, tingling, dizziness, shortness of breath, difficulty breathing, chest pain, blurry vision, loss of vision, nausea, vomiting, abdominal pain, fever, chills, back pain, or any other complaints. Prescriptions: No Action haloperidol 5 mg Tablet 10 mg PO TID Qty: 90 0RF olanzapine 10 mg Tablet 20 mg PO BEDTIME Qty: 30 0RF hydroxyzine HCl 25 mg Tablet 25 mg PO Q6H PRN (Reason: mild anxiety) Qty: 60 0RF Referrals: [place] [Primary Care Provider, Medical] Interventions: [place]-Suicide Risk Severity Scale Last Done: 11/05/25 13:32 ED Discharge Assessment Last Done: 11/05/25 15:45 Discharge Date/Time: 11/05/25 16:01 Print Language: Uzbek
[2025-11-05 13:35] VITALS: BP 140/85; PULSE 115; RESP 18; TEMP 36.9; O2SAT 98
[2025-11-05 14:12] LABS: MANUAL DIFF FLAG NO
[2025-11-05 14:19] LABS: Hematocrit 44.9 % (42.0-52.0); Hemoglobin 16.0 g/dl (14.0-18.0); Imm Gran Abs Auto 0.02 X10*3/uL (0.00-0.03); Imm Gran Pct Auto 0.2 % (0.0-0.4); Lymphocytes Absolute Auto 1.0 X10*3/uL (1.2-4.9); Mean Corpuscular HGB Conc 35.6 g/dl (31.0-36.0); Mean Corpuscular Hemoglobin 29.8 pg (27.0-33.0); Mean Corpuscular Volume 83.6 fL (80.0-98.0); NRBC Abs Auto 0.000 X10*3/uL (0.0-0.012); NRBC Pct Auto 0.0 /100WBC (0.0-0.2); Platelet Count 190 X10*3/uL (160-400); Red Blood Count 5.37 X10*6/uL (4.60-5.80); White Blood Count 10.2 X10*3/uL (4.8-10.8)
[2025-11-05 14:29] LABS: Alanine Aminotransferase 40 U/L (0-40); Albumin Level 5.0 g/dL (3.5-5.0); Alkaline Phosphatase 73 U/L (39-117); Anion Gap 14 (12-20); Aspartate Amino Transferase 26 U/L (5-37); Blood Urea Nitrogen 14 mg/dL (9-16); Calcium 9.7 mg/dL (8.4-10.2); Carbon Dioxide 25 mmol/L (22-29); Chloride 108 mmol/L (96-108); Creatinine Clr Calc Pharmacy 108.0; Estimated Glomerular Filt Rate > 60; Potassium 3.5 mmol/L (3.3-5.1); Sodium 143 mmol/L (135-145); Total Protein 7.5 g/dL (6.5-8.0)
[2025-11-05 15:45] VITALS: BP 140/85; PULSE 115; RESP 18; TEMP 36.9; O2SAT 98
== END 2025-11-05 16:01 | disposition home or self-care (01) ==
PROVIDERS: Emergency Provider Emergency Medicine
DX: F12.980 Cannabis use, unspecified with anxiety disorder (principal); F31.9 Bipolar disorder, unspecified; F17.210 Nicotine dependence, cigarettes, uncomplicated; Z79.899 Other long term (current) drug therapy
CPT/HCPCS: 36415; 80053; 80307; 85025; 99284; 99285; S9485